=== PATIENT | female | born 1930 | race Caucasian/White ===

== ENCOUNTER 2016-11-18 14:11 | Inpatient (IN) ==
--- NOTE | 2016-11-18 14:42 | Emergency Department Note ---
Disposition Clinical Impression: Elevated troponin Altered mental status Qualifiers: Altered mental status type: unspecified Qualified Code(s): R41.82 - Altered mental status, unspecified Closed right hip fracture Qualifiers: Encounter type: initial encounter Qualified Code(s): S72.001A - Fracture of unspecified part of neck of right femur, initial encounter for closed fracture Disposition: Admitted As Inpatient Condition: Good Referrals: [facility] [Advanced Practice Nurse] - Forms: ED Satisfaction Letter General Adult HPI - General Chief complaint: ED Fall Stated complaint: Fall, issue walking Time Seen by Provider: 11/18/16 14:21 Source: patient, family, EMS Mode of arrival: EMS Limitations: altered mental status Nursing Notes Reviewed: Yes Vital Signs Reviewed: Yes - History of Present Illness HPI Narrative: 86-year-old female no reported medical history who presents to the ER with family via EMS due to fall. Daughter states that she found her laying on the ground this morning inside her home. States that she was last seen last night but the doors open this morning so she must up enough this morning. The patient is unable to provide any history and does not remember the fall. Family states that she is stubborn and does not take any medications. Reports that she has seemed more confused lately and she has been hoarding things at home. States that she has been more confused in terms of what things are. States that she found her with baby she was out today and asking where the baby was. No recent illnesses. Patient denies any complaints at this time with the exception of her feet hurting around her toenails. No other complaints. Pt Subjective Complaint: Fall Onset (ago): unknown Radiation: non-radiation Pain Scale: 0 Improves with: nothing Worsens with: nothing Associated symptoms: Reports: denies other symptoms Treatments Prior to Arrival: none - Related Data Home Medications Medication Instructions Recorded Confirmed No Known Home Drugs 11/18/16 11/18/16 Allergies Allergy/AdvReac Type Severity Reaction Status Date / Time No Known Allergies Allergy Verified 11/19/15 19:34 All systems ED: reviewed and negative except as stated. Constitutional: Denies: fever Cardiovascular: Denies: chest pain Respiratory: Denies: dyspnea Gastrointestinal: Denies: abdominal pain, nausea, vomiting Musculoskeletal: Denies: back pain, neck pain Neurological: Denies: headache, numbness, paresthesias Past Medical History - Past Medical History Attestation: Yes The following information was validated with the patient. 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 Absent: tenderness - Chest Chest inspection: Present: normal inspection, symmetric chest wall rise. Absent : tenderness - Respiratory Respiratory exam: Present: normal lung sounds bilaterally - Cardiovascular Cardiovascular exam: Present: regular rate, normal rhythm, normal heart sounds - Abdominal Exam Abdominal exam: Present: soft, Non-Tender. Absent: tenderness, distention, rigidity - Extremities Exam Extremities exam: Present: normal inspection, full ROM - Expanded Upper Extremity Exam Shoulder exam: Present: normal inspection, full ROM Arm exam: Present: normal inspection, full ROM Elbow exam: Present: normal inspection, full ROM Forearm/Wrist exam: Present: normal inspection, full ROM Hand exam: Present: normal inspection, full ROM Vascular exam: Normal: radial pulse - Expanded Lower Extremity Exam Hip/Pelvis exam: Present: normal inspection, full ROM Upper leg exam: Present: normal inspection. Absent: full ROM, swelling Knee exam: Present: normal inspection, full ROM Lower leg exam: Present: normal inspection, full ROM Ankle exam: Present: normal inspection, full ROM Foot/toe exam: Present: normal inspection, full ROM Neurovascular/Tendon exam: Absent: motor deficit, sensory deficit - Neurological Exam Neurological exam: Present: alert, other (Patient is alert and oriented 1 to self. Nonfocal neurologic exam. Moves all extremities equally. Sensation intact in the upper and lower extremities to light touch.). Absent: oriented X3 - Expanded Neurological Exam Patient oriented to: Present: person Speech: Present: fluid speech Motor strength - LUE: 5/5 Motor strength - RUE: 5/5 Motor strength - LLE: 5/5 Motor strength - RLE: 5/5 Sensory exam upper extremity: light touch: Normal Sensory exam lower extremity: light touch: Normal Coma Scale Eye Opening: Spontaneous Coma Scale Motor Response: Obeys Commands Coma Scale Verbal Response: Confused Coma Scale Total: 14 - Psychiatric Psychiatric exam: Present: normal affect, normal mood - Skin Skin exam: Present: warm, dry, intact, normal color Course Course Narrative: Patient seen and examined. She is alert and oriented 1 here. She has no complaints at this time with the exception of her toenails. We will obtain a CT scan of the head. We will also obtain an EKG and troponin given her fall of unknown etiology. We will also obtain an ammonia, TSH, urinalysis and CK level for the patient being found down with an unknown down time. She will likely require admission for altered mental status. - Reevaluation(s) Reevaluation #1: Pelvis x-ray appears abnormal on AP view. She voices no pain at this time. We will obtain a CT scan of the right hip as well. - Consultations Consultation #1: I discussed this case with the on-call orthopedic surgeon's nurse. Discussed the patient's history, exam and imaging findings. She will be admitted to the hospital service and orthopedic surgery will consult. Vital Signs Temperature 97.5 F L 11/18/16 14:13 Pulse Rate 89 11/18/16 14:13 Respiratory Rate 16 11/18/16 14:13 Blood Pressure 145/54 11/18/16 14:13 O2 Sat by Pulse Oximetry 97 11/18/16 14:13 Temperature 97.5 F L 11/18/16 14:13 Pulse Rate 79 11/18/16 17:44 Respiratory Rate 16 11/18/16 17:44 Blood Pressure 163/67 11/18/16 17:44 O2 Sat by Pulse Oximetry 97 11/18/16 17:44 Oxygen Delivery Oxygen Delivery Room Air Medical Decision Making - MDM Narrative Medical decision making narrative: 86-year-old female presents to the ER due to altered mental status and fall at home. Fall was unwitnessed. Patient is alert and oriented 1. She has also had a limp at home. CT of her head shows no acute abnormalities. CT of the right hip demonstrates an age indeterminate fracture. She has a slightly elevated troponin of 0.05 here. Patient admitted to the hospitalist service with orthopedic consultation. - Lab Data Lab results reviewed: Yes I reviewed the patient's lab results. Result diagrams: 11/18/16 14:52 11/18/16 14:52 Lab Results 11/18/16 11/18/16 11/18/16 Range/Units 14:52 14:52 14:52 WBC 7.2 (4.3-11.1) K/mcL RBC 4.40 (3.82-4.97) M/mcL Hgb 11.8 (11.5-15.4) g/dL Hct 38.2 (35.3-44.9) % MCV 86.8 (83.0-100.0) fL MCH 26.8 L (28.0-33.3) pg MCHC 30.9 L (31.6-35.5) g/dL RDW 13.8 (11.5-14.5) % Plt Count 168 (140-400) K/mcL MPV 10.3 (9.4-12.4) fL Immature Gran % 0.3 (0-4) % Seg Neutrophils % 85.3 % Lymphocytes % 8.8 % Monocytes % 5.2 % Eosinophils % 0.1 % Basophils % 0.3 % Neutrophils # 6.1 (1.6-8.9) K/mcL Lymphocytes # 0.6 (0.6-4.6) K/mcL Monocytes # 0.4 (0.0-1.3) K/mcL Eosinophils # 0.0 (0.0-0.6) K/mcL Basophils # 0.0 (0.0-0.2) K/mcL Sodium 143 (136-145) mEq/L Potassium 3.9 (3.5-4.5) mEq/L Chloride 106 (98-109) mEq/L Carbon Dioxide 24 (19-29) mEq/L BUN 32 H (7-20) mg/dL Creatinine 0.85 (0.57-1.11) mg/dL Est GFR ( Amer) > 60 (> 60) Est GFR (Non-Af Amer) > 60 (> 60) BUN/Creatinine Ratio 38 H (6-26) Glucose 108 H (70-99) mg/dL Calculated Osmolality 303 H (280-300) Calcium 9.3 (8.6-10.8) mg/dL Total Bilirubin 0.8 (0.2-1.2) mg/dL Direct Bilirubin 0.3 (0.0-0.5) mg/dL Indirect Bilirubin 0.5 (0.0-1.2) mg/dL AST 44 H (5-34) Units/L ALT 18 (0-55) Units/L Alkaline Phosphatase 66 (38-126) Units/L Ammonia (18-72) mcmol/L Creatine Kinase 1078 H (29-168) Units/L Troponin I 0.05 H* (0-0.03) ng/mL Serum Total Protein 6.7 (6.0-8.3) g/dL Albumin 3.5 (3.5-5.0) g/dL Globulin 3.2 (2.4-3.5) g/dL Albumin/Globulin Ratio 1.1 (1.1-2.2) TSH 1.363 (0.350-4.840) mcIU/mL 11/18/16 Range/Units 14:55 WBC (4.3-11.1) K/mcL RBC (3.82-4.97) M/mcL Hgb (11.5-15.4) g/dL Hct (35.3-44.9) % MCV (83.0-100.0) fL MCH (28.0-33.3) pg MCHC (31.6-35.5) g/dL RDW (11.5-14.5) % Plt Count (140-400) K/mcL MPV (9.4-12.4) fL Immature Gran % (0-4) % Seg Neutrophils % % Lymphocytes % % Monocytes % % Eosinophils % % Basophils % % Neutrophils # (1.6-8.9) K/mcL Lymphocytes # (0.6-4.6) K/mcL Monocytes # (0.0-1.3) K/mcL Eosinophils # (0.0-0.6) K/mcL Basophils # (0.0-0.2) K/mcL Sodium (136-145) mEq/L Potassium (3.5-4.5) mEq/L Chloride (98-109) mEq/L Carbon Dioxide (19-29) mEq/L BUN (7-20) mg/dL Creatinine (0.57-1.11) mg/dL Est GFR ( Amer) (> 60) Est GFR (Non-Af Amer) (> 60) BUN/Creatinine Ratio (6-26) Glucose (70-99) mg/dL Calculated Osmolality (280-300) Calcium (8.6-10.8) mg/dL Total Bilirubin (0.2-1.2) mg/dL Direct Bilirubin (0.0-0.5) mg/dL Indirect Bilirubin (0.0-1.2) mg/dL AST (5-34) Units/L ALT (0-55) Units/L Alkaline Phosphatase (38-126) Units/L Ammonia 19 (18-72) mcmol/L Creatine Kinase (29-168) Units/L Troponin I (0-0.03) ng/mL Serum Total Protein (6.0-8.3) g/dL Albumin (3.5-5.0) g/dL Globulin (2.4-3.5) g/dL Albumin/Globulin Ratio (1.1-2.2) TSH (0.350-4.840) mcIU/mL - Radiology Data Radiology results reviewed: Yes I reviewed the patient's radiology results. Chest X-Ray 11/18/16 14:37 IMPRESSION: No acute cardiopulmonary process demonstrated D/ / Dax Monroe MD / Dax Monroe MD Interpreting Provider: Dax Monroe MD Head CT 11/18/16 14:37 IMPRESSION: 1. No acute intracranial abnormality. 2. Diffuse cerebral atrophy. D/ / Kendrick Garnica MD / Kendrick Garnica MD Interpreting Provider: Kendrick Garnica MD Pelvis X-Ray 11/18/16 14:37 IMPRESSION: Impacted subcapital femoral neck fracture of indeterminate age. Although acute fracture is not excluded, sclerosis suggests a subacute or remote fracture. Otherwise no acute osseous abnormality of the pelvis. D/ / Lukas Alba MD / Lukas Alba MD Interpreting Provider: Lukas Alba MD Hip CT 11/18/16 15:14 IMPRESSION: 1. Age-indeterminate impacted fracture of the right subcapital femoral neck. 2. 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 3. Moderate right hip degenerative changes. Associated joint effusion and intra-articular bodies. D/ / 11/18/2016 16:24:24 Oliverio Kuo MD / lgray Interpreting Provider: Oliverio Kuo MD - EKG Data EKG #1 EKG attestation: Yes I reviewed and interpreted this EKG. EKG results narrative: EKG demonstrates sinus rhythm with PACs with a rate of 89 bpm. Normal axis. Normal intervals. No gross ST elevations or depressions. No acute ischemic findings. S.[email or web address].Christopher - Arjun Situation: Demographics, MOA Background: Presenting Complaint, Relevant PMH, Meds, & Allergies Assessment: Vital Signs, Course and respsone to treatment, Exam Concerns, Patient/Family Expectation, Pertinant Lab Results, Outstanding Labs Recommendation: Barrier(s) to disposition, Recommendation based on pending studies, treatments, or consults S.B.AIam Report Given to: Lucy Díaz Repor Time: 18:47
[2016-11-18 15:06] LABS: Basophils % 0.3 %; Eosinophils % 0.1 %; Hematocrit 38.2 % (35.3-44.9); Hemoglobin 11.8 g/dL (11.5-15.4); Immature Granulocytes % 0.3 % (0-4); Lymphocytes # 0.6 K/mcL (0.6-4.6); Lymphocytes % 8.8 %; Mean Corpuscular HGB Conc 30.9 g/dL (31.6-35.5); Mean Corpuscular Hemoglobin 26.8 pg (28.0-33.3); Mean Corpuscular Volume 86.8 fL (83.0-100.0); Mean Platelet Volume 10.3 fL (9.4-12.4); Monocytes # 0.4 K/mcL (0.0-1.3); Monocytes % 5.2 %; Neutrophils # 6.1 K/mcL (1.6-8.9); Platelet Count 168 K/mcL (140-400); Red Cell Distribution Width 13.8 % (11.5-14.5); Segmented Neutrophils % 85.3 %
[2016-11-18 16:14] LABS: Alanine Aminotransferase 18 Units/L (0-55); Albumin 3.5 g/dL (3.5-5.0); Albumin/Globulin Ratio 1.1 (1.1-2.2); Alkaline Phosphatase 66 Units/L (38-126); Aspartate Amino Transferase 44 Units/L (5-34); BUN/Creatinine Ratio 38 (6-26); Bilirubin,Direct 0.3 mg/dL (0.0-0.5); Bilirubin,Indirect 0.5 mg/dL (0.0-1.2); Bilirubin,Total 0.8 mg/dL (0.2-1.2); Blood Urea Nitrogen 32 mg/dL (7-20); Calcium 9.3 mg/dL (8.6-10.8); Carbon Dioxide 24 mEq/L (19-29); Chloride 106 mEq/L (98-109); Creatine Kinase 1078 Units/L (29-168); Globulin 3.2 g/dL (2.4-3.5); Glucose 108 mg/dL (70-99); Osmolality,Calculated 303 (280-300); Potassium 3.9 mEq/L (3.5-4.5); Sodium 143 mEq/L (136-145); Total Protein 6.7 g/dL (6.0-8.3); eGFR For African Americans > 60 (> 60); eGFR For Non-African Americans > 60 (> 60)
--- NOTE | 2016-11-18 16:22 | Emergency Department Note ---
START Narrative - START START: I examined this patient and my medical decision-making was reviewed with the Resident Physician. I agree with the documented findings, disposition and treatment plan as described except to the extent set forth below. 86yo F found down at home by family members today. pt found to have right hip fx today. ?subacute vs acute? family states she has had a hard time ambulating as of late due to right hip pain. pt will need to be admitted.
[2016-11-18 16:38] LABS: Thyroid Stimulating Hormone 1.363 mcIU/mL (0.350-4.840)
[2016-11-18] MEDS ORDERED: 0.9 % Sodium Chloride 1,000 ML IVC ONE (17:13)
[2016-11-18] MEDS ORDERED: Aspirin 81 MG TAB.CHEW PO ONE (17:27)
[2016-11-18] MEDS ORDERED: CefTRIAXone 1,000 MG VIAL IM ONE (18:05)
[2016-11-18] MEDS ORDERED: Haloperidol Lactate 5 MG/ML VIAL IM ONE (18:32)
--- NOTE | 2016-11-18 20:02 | Orthopedic Consult Note ---
Date of Encounter: 11/18/16 Time of Encounter: 19:54 History of Present Illness Chief complaint: No current complaints of pain HPI: Ms. Boyce is a 86 year old female admitted to the emergency room at [facility] after reportedly having a fall at her home today. The fall was not witnessed. The patient was brought to the emergency room at [facility]. where pelvic x-rays revealed evidence of a right hip fracture. A CT scan was also performed which was consistent with a previous fracture. Patient denies any complaints of pain. Patient does have significant for confusion and dementia. She does live alone. I did obtain a large amount of the patient's information from her son who is at bedside. For complete history and physical data please refer the formal portion of the medical chart. Pertinent orthopedic examination at this time reveals full range of motion of the hips without evidence of pain elicited. Leg lengths are relatively equal with perhaps some mild right lower extremity shortening. Neurosensory exam is normal. Are reviewed x-rays. These reveal some chronic changes about the right hip with a deformity of the head neck junction. There appear to be some cystic changes within the head. A CT scan was likewise reviewed. This reveals evidence of a healed impacted femoral neck fracture. There are secondary changes of avascular necrosis with margins of sclerosis. This is associated with some cystic changes in the anterior superior acetabulum. There are some irregularities along the greater trochanter. No significant surrounding edema. No gross lipohemarthrosis. Impression: Chronic, healed right femoral neck fracture with secondary avascular necrosis changes Recommendation: I had a long discussion with the patient's son and reviewed all the images with him explaining the process and the chronicity of this fracture with subsequent healing with secondary avascular necrosis changes. If the patient was symptomatic surgery could be entertained, this would either be a hemiarthroplasty or more definitively a total hip arthroplasty. I would not recommend either unless the patient was more symptomatic. Concerns for the patient's status would make either surgery risky from a postoperative compliance point of view. The patient's son understands and agrees. I also discussed with the son that the patient did have an elevated cardiac troponin level. This would need more workup. This would also potentially preclude any more urgent surgical intervention. Thank you very much for allowing me to see care for Mrs. Boyce. 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 Physical Exam - Constitutional Vitals: Temp Pulse Resp BP Pulse Ox 97.5 F L 79 14 160/81 97 11/18/16 14:13 11/18/16 17:44 11/18/16 19:09 11/18/16 19:09 11/18/16 17:44 Results - Labs Result Diagrams: 11/18/16 14:52 11/18/16 14:52 Labs: Abnormal lab results MCH 26.8 pg (28.0-33.3) L 11/18/16 14:52 MCHC 30.9 g/dL (31.6-35.5) L 11/18/16 14:52 BUN 32 mg/dL (7-20) H 11/18/16 14:52 BUN/Creatinine Ratio 38 (6-26) H 11/18/16 14:52 Glucose 108 mg/dL (70-99) H 11/18/16 14:52 Calculated Osmolality 303 (280-300) H 11/18/16 14:52 AST 44 Units/L (5-34) H 11/18/16 14:52 Creatine Kinase 1078 Units/L (29-168) H 11/18/16 14:52 Troponin I 0.05 ng/mL (0-0.03) H* 11/18/16 14:52 All other labs normal. - Diagnostic results Hip AP/Lateral x-ray: image reviewed Hip CT: image reviewed Consult Discharge Plan - Plan Referrals: NONE,PCP [Primary Care Provider] -
[2016-11-18] MEDS ORDERED: Ondansetron 4 MG/2 ML VIAL IVP PRN (21:23)
[2016-11-18] MEDS ORDERED: Naloxone 0.4 MG/ML INJ IVP PRN (21:23)
[2016-11-18] MEDS ORDERED: *HR* Morphine 2 MG/ML SYRINGE IVP PRN (21:23)
[2016-11-18] MEDS ORDERED: Acetaminophen 325 MG TABLET PO PRN (21:23)
--- NOTE | 2016-11-18 21:23 | Internal Med History&Physical ---
<Mark Herrera - Last Filed: 11/18/16 22:42> Date of Encounter: 11/18/16 Time of Encounter: 21:00 Assessment and Plan (1) Altered mental status Current visit: Yes Status: Acute Patient found this afternoon to have altered mental status, according to son this has been worsening over the past couple months but appears acutely worse today. Currently patient altered mental status of unknown etiology. Found down earlier this afternoon with dehydration and rhabdomyolysis. Prior right hip fracture. Abdominal pain and left lower extremity swelling on physical exam. Altered mental status could represent sequela of dehydration, rhabdo, DVT /PE, ACS or acute abdominal process. UA with reflex culture ordered Ultrasound of right upper quadrant including gallbladder, pancreas, liver Lower extremity Dopplers ordered We will continue to trend troponins Obtain echocardiogram We will continue 100 mL/hr normal saline We will monitor vitals, continuous telemetry, pulse oximetry Lipase ordered Qualifiers: Altered mental status type: unspecified Qualified Code(s): R41.82 - Altered mental status, unspecified (2) Rhabdomyolysis Current visit: Yes Status: Acute Patient found to have elevated of 1078 after having been down for unknown period of time. Evidence of dehydration and physical exam and labs. Kidney function appears intact. 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 Patient evaluated by orthopedic surgery with no intervention planned for this time. We will control pain with Tylenol, Pierron, a morphine depending on severity PT/OT consult banking services advisor consult to help with discharge planning and resources Qualifiers: Encounter type: initial encounter Qualified Code(s): S72.001A - Fracture of unspecified part of neck of right femur, initial encounter for closed fracture (4) Abdominal tenderness Current visit: Yes Status: Acute Patient presents with altered mental status, found down, with rhabdomyolysis, unilateral leg swelling present, exquisite tenderness in upper right quadrant with positive Figueroa sign, and tenderness and suprapubic regions. Patient has remote history (50 years ago) of lung cancer for which she had lobectomy according to son. We will obtain right upper quadrant ultrasound including liver, gallbladder, and pancreas Consider CT abdomen Obtain lipase UA with reflex culture ordered Qualifiers: Abdominal location: periumbilical Presence of rebound: not specified Qualified Code(s): R10.815 - Periumbilic abdominal tenderness (5) Left leg swelling Current visit: Yes Status: Acute Patient appears to have increased unilateral swelling in left leg, increased calf diameter, new lateral calf tenderness, and positive Homans sign. Clinical findings concerning for DVT. Wells score for DVT 3-4. We will obtain lower extremity Dopplers (6) Dehydration Current visit: Yes Status: Acute Patient presents with altered mental status, found down for an unknown period of time. Elevated CK seen. Patient BUN disproportionately elevated with BUN to creatinine ratio greater than 20 suggesting dehydration. Patient received 1 L fluid bolus in the ED. We will continue patient on normal saline at 100 mL an hour (7) Elevated troponin Current visit: Yes Status: Acute Patient presented with initial troponin of 0.05 in the presence of dehydration and rhabdomyolysis. No findings concerning for ischemia noted in patient EKG. Elevation of troponin likely represents demand ischemia, we will continue to trend. We will continue to trend troponins every 6 hours We will watch patient on telemetry Obtain echocardiogram (8) HTN (hypertension) Current visit: Yes Status: Acute Mild hypertension present currently 147/84. We will continue to monitor with regular vital checks Qualifiers: Qualified Code(s): I10 - Essential (primary) hypertension (9) DVT prophylaxis Current visit: No Status: Acute Physician place on 5000 units heparin subcutaneous twice a day Internal Medicine - H&P: HPI Chief complaint: AMS, broken right hip Admitted From: Home Plans for Post Hospital Care: Home History of present illness: Ms. Boyce is a 86 year old female with no significant prior medical history (as patient does not go to doctors) who was brought to [facility] by EMS after being found down at home. Get complete history is difficult due to alterations in patient mental status, patient's son is at bedside to assist in history or possible. He states that patient was found down by her neighbor earlier today with altered mental status. It is unclear how long she had been down prior to being found. Imaging performed in the emergency room showed the patient had a past right hip fracture as evidenced by healed impacted from oral neck fracture with secondary avascular necrosis. The son reports that he was unaware of patient and fracture as she does not typically complain of any discomfort, nor has he noticed her walking differently, with limp, or pain. Patient is alert spontaneously, but only oriented 2 does not appear to answer questions appropriately. Patient's son states that since her last hospitalization 5 months ago and he has been continuing to have sundowning. In the emergency department she was apparently quite disoriented and climbing out of her bed. Past Med Surg Social Fam HX - Past Medical History Medical history: cancer, dementia, other Psychiatric history: no psych history - Past Surgical History Surgical History: cholecystectomy, other - Social History Smoking Status: Never smoker Smokeless Tobacco Status: No Alcohol use: none Drug use: none - Family History Mother Living Status: Cause of : Natural causes Internal Medicine - H&P: Meds No Known Home Drugs 11/18/16 [History] 3 Allergy/AdvReac Type Severity Reaction Status Date / Time No Known Allergies Allergy Verified 11/19/15 19:34 ROS unobtainable: due to mental status - Constitutional Vitals: Temp Pulse Resp BP Pulse Ox 98.3 F 91 18 147/84 98 11/18/16 20:00 11/18/16 20:00 11/18/16 20:00 11/18/16 20:00 11/18/16 20:00 Exam: General: Cooperative, pleasant, no acute distress, alert and oriented 2, does not answer questions appropriately HEENT: Normocephalic, atraumatic, neck supple, trachea midline, Conjunctiva pink , sclera anicteric, EOMI, PERRL, oral mucosa dry, no orophargeal erythema or exudates Respiratory: No accessory muscle usage, clear to auscultation bilaterally, no wheezes/rhonchi/rales appreciated Cardiovascular: Regular rate and rhythm, S1 and S2 present, no murmurs/rubs/ gallops/clicks appreciated GI/abdominal: Nondistended, tenderness to palpation in suprapubic region, right upper quadrant, right lower quadrant, positive Figueroa sign, soft, normal bowel sounds, no peritoneal signs Extremities: Calf tenderness present in left calf, positive Homans sign left side, increased Diameter in left leg, noncyanotic, +1 pedal edema appreciated bilaterally, warm, lower extremity pulses palpable and symmetrical Neurological: Alert and oriented , no facial droop, no focal deficits, cranial nerves II through XII grossly intact, bench carpenter strength preserved bilaterally, equal 5/5 strength in bilateral upper shortness, gross sensation intact in upper and lower extremities Skin: Dry, intact, normal color Internal Med - H&P Results - Labs CBC & Chem 7: 11/18/16 14:52 11/18/16 14:52 <Melisa Gaston - Last Filed: 11/19/16 04:32> Date of Encounter: 11/19/16 Time of Encounter: 03:30 Internal Medicine - H&P: HPI History of present illness: Ms. Boyce is a 86 year old female All Systems PM: A 10-system review of systems was performed and is negative for pertinent findings except as documented above in the HPI. - Constitutional Vitals: Temp Pulse Resp BP Pulse Ox 98.5 F 65 14 161/71 100 11/18/16 23:38 11/18/16 23:38 11/18/16 23:38 11/18/16 23:38 11/18/16 23:38 Internal Med - H&P Results - Labs CBC & Chem 7: 11/18/16 14:52 11/18/16 14:52 Labs: Cardiac Enzymes 11/18/16 Range/Units 23:02 Troponin I 0.04 H* (0-0.03) ng/mL - Attending Attestation I have independently seen and examined the patient. I agree with the documented findings, assessment, and plan as recorded by the resident physician Mark Herrera except as listed below: As per prior records, patient has history of Alzheimers dementia however has not been on any medications at home. It is unclear of what patient's baseline mental status is at this time. Given the acute presentation of rhabdomyolysis, will continue IV fluids and closely monitor renal function. Will obtain Liver US given RUQ abd pain. Pt reported of resolution of pain after receiving morphine. Will continue to closely monitor. If mental status does not change despite improvement in metabolic insufficiencies, consider neurology evaluation for Alzheimer's dementia.
[2016-11-18] MEDS: 0.9 % Sodium Chloride 1,000 ML IVC SCH (22:30)
[2016-11-19 05:31] LABS: Basophils % 0.3 %; Eosinophils # 0.1 K/mcL (0.0-0.6); Eosinophils % 1.4 %; Hemoglobin 10.4 g/dL (11.5-15.4); Immature Granulocytes % 0.2 % (0-4); Lymphocytes # 0.8 K/mcL (0.6-4.6); Lymphocytes % 13.5 %; Mean Corpuscular HGB Conc 31.5 g/dL (31.6-35.5); Mean Corpuscular Hemoglobin 27.4 pg (28.0-33.3); Mean Corpuscular Volume 87.1 fL (83.0-100.0); Mean Platelet Volume 10.7 fL (9.4-12.4); Monocytes # 0.4 K/mcL (0.0-1.3); Monocytes % 6.9 %; Neutrophils # 4.9 K/mcL (1.6-8.9); Platelet Count 132 K/mcL (140-400); Red Blood Count 3.79 M/mcL (3.82-4.97); Red Cell Distribution Width 13.7 % (11.5-14.5); Segmented Neutrophils % 77.7 %
[2016-11-19 05:53] LABS: Chol/HDL Ratio 2.7 (0-4.9); Magnesium 1.8 mg/dL (1.6-2.6)
[2016-11-19 06:42] LABS: Bilirubin,Urine Negative (Negative); Blood,Urine Large (Negative); Clarity,Urine Cloudy (Clear); Color,Urine Yellow (Yellow); Glucose,Urine (UA) Normal (Normal); Ketones,Urine 40 mg/dL (Negative); Leukocyte Esterase,Urine Trace (Negative); Nitrite,Urine Negative (Negative); Protein,Urine 30 mg/dL (Neg-Trace); Specific Gravity,Urine 1.019 (1.010-1.025); Urobilinogen,Urine Normal (Normal)
[2016-11-19] MEDS: *HR* Heparin 5,000 UNIT/ML VIAL SQ SCH ×2 (06:46→19:44)
[2016-11-19] MEDS: Pantoprazole 40 MG VIAL IVP SCH (06:46)
[2016-11-19 06:51] LABS: Bacteria,Urine None Seen per hpf (None-Few); Hyaline Casts,Urine None Seen per lpf (None-Few); Squamous Epithelial Cell,Urine None Seen per lpf (None-Few); WBC,Urine 30-50 per hpf (0-3)
[2016-11-19 09:51] LABS: BUN/Creatinine Ratio 34 (6-26); Blood Urea Nitrogen 23 mg/dL (7-20); Carbon Dioxide 23 mEq/L (19-29); Chloride 110 mEq/L (98-109); Creatine Kinase 527 Units/L (29-168); Glucose 74 mg/dL (70-99); Osmolality,Calculated 296 (280-300); Potassium 3.3 mEq/L (3.5-4.5); Sodium 142 mEq/L (136-145); eGFR For African Americans > 60 (> 60); eGFR For Non-African Americans > 60 (> 60)
--- NOTE | 2016-11-19 13:16 | Internal Med Progress Note ---
Date of Encounter: 11/19/16 Time of Encounter: 13:14 - Assessment and plan (1) Elevated troponin Current Visit: Yes Status: Acute Assessment and plan: Patient likely has demand ischemia from dehydration and rhabdomyolysis. Serial troponins flattened adynamic, around 0.05. Continue telemetry monitoring and follow-up echocardiogram. (2) Abdominal tenderness Current Visit: Yes Status: Resolved Assessment and plan: Patient reported right upper quadrant abdominal pain to the admitting physician. She currently denies pain. Follow-up right upper quadrant ultrasound. Diet as tolerated. Qualifiers: Abdominal location: right upper quadrant Presence of rebound: not specified Qualified Code(s): R10.811 - Right upper quadrant abdominal tenderness (3) Left leg swelling Current Visit: Yes Status: Acute Assessment and plan: Noted to have warmth, edema and calf tenderness in left lower extremity. Follow -up venous Doppler. Left leg elevation. (4) Rhabdomyolysis Current Visit: Yes Status: Acute Assessment and plan: Due to lying in her couch for several hours at home. Serum creatinine kinases noted to be improving. Monitor serum creatinine and electrolytes closely and continue IV hydration. Qualifiers: Rhabdomyolysis type: non-traumatic Qualified Code(s): M62.82 - Rhabdomyolysis (5) Acute encephalopathy Current Visit: Yes Status: Acute Assessment and plan: Patient likely has delirium due to elderly age, UTI, hospitalization and dehydration. Continue supportive care and treatment of underlying conditions. Physical and occupational therapy evaluation. (6) Hypokalemia Current Visit: Yes Status: Acute Assessment and plan: Supplement with oral potassium chloride. (7) Closed right hip fracture Current Visit: Yes Status: Chronic Assessment and plan: Incidental finding of right hip fracture on CT pelvis, however this is noted to be old and patient does not report any pertaining symptoms. Has been evaluated by orthopedic surgery, who recommended conservative management at this time without symptoms. Physical and occupational therapy evaluation pending. Qualifiers: Encounter type: initial encounter Qualified Code(s): S72.001A - Fracture of unspecified part of neck of right femur, initial encounter for closed fracture (8) Essential hypertension Current Visit: Yes Status: Chronic Assessment and plan: Patient likely has undiagnosed hypertension, she does not take any medications at home. Continue to monitor for now. - Subjective Interval history: Unable to provide history, noted to be confused, d/w patient's son at bedside; patient has been healthy and ambulatory until yesterday, lives alone; no reported fever/chills, cough, dyspnea; reported right upper abdominal pain last night, no nausea/emesis/diarrhea; - Constitutional Vitals: Temp Pulse Resp BP Pulse Ox 98.7 F 85 16 169/53 99 11/19/16 11:44 11/19/16 11:44 11/19/16 11:44 11/19/16 11:44 11/19/16 11:44 General appearance: Present: A&O X 1. Absent: answers questions appropriately - Respiratory Respiratory exam: Present: CTAB. Absent: accessory muscle use, rales, rhonchi, wheezes - Cardiovascular Cardiovascular exam: Present: RRR, +S1, +S2. Absent: diastolic murmur, gallop, rubs, systolic murmur - GI/Abdominal GI/Abdominal exam: Present: normal bowel sounds, soft, no peritoneal signs. Absent: distended, tenderness - Extremities Exam Extremities exam: Present: pedal edema (left leg with warmth, tenderness, edema) , tenderness, warm, radial pulses palpable and symmetrical. Absent: calf tenderness, cyanotic Internal Medicine: Result - Labs CBC & Chem 7: 11/20/16 06:46 11/21/16 04:52 Labs: Short CBC 11/19/16 Range/Units 05:19 WBC 6.2 (4.3-11.1) K/mcL Hgb 10.4 L (11.5-15.4) g/dL Hct 33.0 L (35.3-44.9) % Plt Count 132 L (140-400) K/mcL Neutrophils # 4.9 (1.6-8.9) K/mcL BMP 11/19/16 08:57 Sodium 142 Potassium 3.3 L Chloride 110 H Carbon Dioxide 23 BUN 23 H Creatinine 0.68 Glucose 74 Calcium 8.0 L Cardiac Enzymes 11/18/16 11/19/16 Range/Units 23:02 05:19 Troponin I 0.04 H* 0.05 H* (0-0.03) ng/mL Urine 11/19/16 Range/Units 06:27 Urine Color Yellow (Yellow) Urine Clarity Cloudy A (Clear) Urine pH 6.0 (5.0-8.0) pH Units Ur Specific [place] 1.019 (1.010-1.025) Urine Protein 30 H (Neg-Trace) mg/dL Urine Glucose (UA) Normal (Normal) mg/dL Consult Discharge Plan - Plan Referrals: NONE,PCP [Primary Care Provider] -
[2016-11-19] MEDS: *HR* HYDROcodone/Acet 5/325 mg TABLET PO PRN (21:45)
[2016-11-19] MEDS: Potassium Chloride Elixir 20 MEQ/15 ML UDC PO ONE ×2 (22:00→22:07)
[2016-11-19] MEDS ORDERED: Ketorolac 15 MG/ML VIAL IVP PRN (22:09)
[2016-11-19] MEDS ORDERED: *HR* Morphine 2 MG/ML SYRINGE IVP ONE (23:47)
[2016-11-20] MEDS: 0.9 % Sodium Chloride 1,000 ML IVC SCH ×2 (05:54→16:13)
[2016-11-20] MEDS: Pantoprazole 40 MG VIAL IVP SCH (05:54)
[2016-11-20] MEDS: *HR* Heparin 5,000 UNIT/ML VIAL SQ SCH ×2 (05:54→17:24)
[2016-11-20 06:55] LABS: Basophils % 0.6 %; Eosinophils # 0.1 K/mcL (0.0-0.6); Eosinophils % 1.4 %; Hematocrit 34.6 % (35.3-44.9); Hemoglobin 10.8 g/dL (11.5-15.4); Immature Granulocytes % 0.6 % (0-4); Immature Platelets 3.3 % (1.1-6.1); Lymphocytes # 0.6 K/mcL (0.6-4.6); Mean Corpuscular HGB Conc 31.2 g/dL (31.6-35.5); Mean Corpuscular Hemoglobin 27.2 pg (28.0-33.3); Mean Corpuscular Volume 87.2 fL (83.0-100.0); Mean Platelet Volume 10.5 fL (9.4-12.4); Monocytes # 0.3 K/mcL (0.0-1.3); Platelet Count 135 K/mcL (140-400); Red Blood Count 3.97 M/mcL (3.82-4.97); Red Cell Distribution Width 13.5 % (11.5-14.5); Segmented Neutrophils % 80.4 %
[2016-11-20 07:10] LABS: BUN/Creatinine Ratio 31 (6-26); Blood Urea Nitrogen 21 mg/dL (7-20); Carbon Dioxide 19 mEq/L (19-29); Chloride 110 mEq/L (98-109); Creatine Kinase 236 Units/L (29-168); Glucose 68 mg/dL (70-99); Osmolality,Calculated 293 (280-300); Potassium 3.1 mEq/L (3.5-4.5); Sodium 141 mEq/L (136-145); eGFR For African Americans > 60 (> 60); eGFR For Non-African Americans > 60 (> 60)
--- NOTE | 2016-11-20 11:01 | Internal Med Progress Note ---
Date of Encounter: 11/20/16 Time of Encounter: 11:00 - Assessment and plan (1) Acute encephalopathy Current Visit: Yes Status: Acute Assessment and plan: Patient likely has delirium due to elderly age, hospitalization and dehydration. Continue supportive care and treatment of underlying conditions. Urinalysis is suggestive of infection, however urine culture shows no growth. We will hold antibiotics at this time. Patient continues to be agitated and trying to get out of bed. Will use when necessary IV Haldol and start oral Risperdal. One-on-one sitter for patient safety. Physical and occupational therapy evaluation noted, recommend placement in extended care facility. hospitality services manager consult. (2) Hypokalemia Current Visit: Yes Status: Acute Assessment and plan: Supplement with oral potassium chloride. (3) Closed right hip fracture Current Visit: Yes Status: Chronic Assessment and plan: Incidental finding of right hip fracture on CT pelvis, however this is noted to be old and patient does not report any pertaining symptoms. Has been evaluated by orthopedic surgery, who recommended conservative management at this time without symptoms. Physical and occupational therapy daily. Qualifiers: Encounter type: initial encounter Qualified Code(s): S72.001A - Fracture of unspecified part of neck of right femur, initial encounter for closed fracture (4) Elevated troponin Current Visit: Yes Status: Resolved Assessment and plan: Patient likely has demand ischemia from dehydration and rhabdomyolysis. Serial troponins flattened adynamic, around 0.05. Continue telemetry monitoring; echocardiogram shows hyperdynamic ejection fraction 70%, mild left ventricular diastolic dysfunction, mild to moderate left atrial dilatation. (5) Abdominal tenderness Current Visit: Yes Status: Resolved Assessment and plan: Patient reported right upper quadrant abdominal pain to the admitting physician. She currently denies pain. Right upper quadrant ultrasound reviewed , no acute abnormality, mild hepatic steatosis. Diet as tolerated. Qualifiers: Abdominal location: right upper quadrant Presence of rebound: not specified Qualified Code(s): R10.811 - Right upper quadrant abdominal tenderness (6) Left leg swelling Current Visit: Yes Status: Acute Assessment and plan: Noted to have warmth, edema and calf tenderness in left lower extremity. Left lower extremity venous Doppler ultrasound is negative for DVT. Left leg elevation. (7) Rhabdomyolysis Current Visit: Yes Status: Acute Assessment and plan: Due to lying in her couch for several hours at home. Serum creatinine kinases noted to be improving. Monitor serum creatinine and electrolytes closely and continue IV hydration. Qualifiers: Rhabdomyolysis type: non-traumatic Qualified Code(s): M62.82 - Rhabdomyolysis - Subjective Interval history: Unable to provide history, patient is very confused today; able to tell me her name but otherwise disoriented to place and time. Trying to get out of bed, thinking that she needs to go to her bed and lie down. Attempted to reorient to surroundings. - Constitutional Vitals: Temp Pulse Resp BP Pulse Ox 98.7 F 91 16 163/57 97 11/20/16 07:11 11/20/16 07:11 11/20/16 07:11 11/20/16 07:11 11/20/16 07:11 General appearance: Present: A&O X 1. Absent: answers questions appropriately - Respiratory Respiratory exam: Present: CTAB. Absent: accessory muscle use, rales, rhonchi, wheezes - Cardiovascular Cardiovascular exam: Present: RRR, +S1, +S2, tachycardia. Absent: diastolic murmur, gallop, rubs, systolic murmur - GI/Abdominal GI/Abdominal exam: Present: normal bowel sounds, soft, no peritoneal signs. Absent: distended, tenderness Internal Medicine: Result - Labs CBC & Chem 7: 11/20/16 06:46 11/21/16 04:52 Labs: Short CBC 11/20/16 Range/Units 06:46 WBC 5.0 (4.3-11.1) K/mcL Hgb 10.8 L (11.5-15.4) g/dL Hct 34.6 L (35.3-44.9) % Plt Count 135 L (140-400) K/mcL Neutrophils # 4.0 (1.6-8.9) K/mcL BMP 11/20/16 06:46 Sodium 141 Potassium 3.1 L Chloride 110 H Carbon Dioxide 19 BUN 21 H Creatinine 0.67 Glucose 68 L Calcium 8.0 L - Impressions Impressions Echocardiogram 11/19/16 19:00 Impressions: LVEF 70%. Normal LV chamber size, wall thickness and function. Mild left ventricular diastolic dysfunction. Normal right ventricular structure and function. Mild to moderately dilated left atrium. Unable to estimate RVSP due to lack of TR jet. No obvious significant valvular dysfunction. Left Ventricular Wall Motion: Rest Echo Findings All wall segments showed normal motion. Findings: Study Quality * Technically adequate exam. ECG Findings * Normal sinus rhythm. Left Ventricle * LVEF 70%. * Normal LV chamber size, wall thickness and function. * Mild left ventricular diastolic dysfunction. Right Ventricle * Normal right ventricular structure and function. Left Atrium * Mild to moderately dilated left atrium. Right Atrium * Normal right atrial size. Interatrial Septum * No evidence of PFO by color Doppler. Aortic Valve * Aortic valve not well visualized. * No aortic regurgitation. * No aortic stenosis. Mitral Valve * Normal mitral valve structure and function. * No mitral stenosis. * No mitral regurgitation. Tricuspid Valve * Normal tricuspid valve structure and function. * No tricuspid regurgitation. * Unable to estimate RVSP due to lack of TR jet. Pulmonic Valve * Pulmonic valve is not well visualized. * No pulmonic regurgitation. Aorta * Normally sized aortic root. Pericardium * The pericardium appears normal. IVC * Normal IVC dimensions and inspiratory collapse. Pulmonary Artery * Normal visualized portions of the main pulmonary artery. Consult Discharge Plan - Plan Referrals: NONE,PCP [Primary Care Provider] -
[2016-11-20] MEDS ORDERED: Potassium Chloride Elixir 20 MEQ/15 ML UDC PO ONE (12:59)
[2016-11-20] MEDS: Haloperidol Lactate 5 MG/ML VIAL IVP PRN ×2 (13:00→17:22)
[2016-11-20] MEDS: *HR* HYDROcodone/Acet 5/325 mg TABLET PO PRN (16:16)
[2016-11-20] MEDS ORDERED: Haloperidol Lactate 5 MG/ML VIAL IVP PRN (18:35)
[2016-11-20] MEDS ORDERED: Ziprasidone injection 20 MG/ML VIAL IM ONE (19:50)
[2016-11-21] MEDS: 0.9 % Sodium Chloride 1,000 ML IVC SCH (01:05)
[2016-11-21 05:50] LABS: BUN/Creatinine Ratio 15 (6-26); Blood Urea Nitrogen 11 mg/dL (7-20); Calcium 8.1 mg/dL (8.6-10.8); Carbon Dioxide 24 mEq/L (19-29); Chloride 115 mEq/L (98-109); Glucose 116 mg/dL (70-99); Magnesium 1.8 mg/dL (1.6-2.6); Osmolality,Calculated 302 (280-300); Potassium 3.6 mEq/L (3.5-4.5); Sodium 146 mEq/L (136-145); eGFR For African Americans > 60 (> 60); eGFR For Non-African Americans > 60 (> 60)
[2016-11-21] MEDS: *HR* Heparin 5,000 UNIT/ML VIAL SQ SCH ×2 (06:36→16:54)
--- NOTE | 2016-11-21 10:15 | Internal Med Progress Note ---
Date of Encounter: 11/21/16 Time of Encounter: 10:13 - Assessment and plan (1) Acute encephalopathy Current Visit: Yes Status: Acute Assessment and plan: Patient likely has delirium due to elderly age, underlying dementia, hospitalization and dehydration. No evidence of infection. Continues to have episodes of agitation, one-on-one sitter for patient safety. Will use when necessary IV Haldol and continue oral Risperdal. Physical and occupational therapy evaluation noted, recommend placement in extended care facility. client services account manager consult. (2) Essential hypertension Current Visit: Yes Status: Chronic Assessment and plan: Blood pressure noted to be elevated. Not on any medications at home. Start low -dose amlodipine and continue to monitor. Low-sodium diet. Will use when necessary IV hydralazine for appropriate blood pressure control. (3) Hypokalemia Current Visit: Yes Status: Resolved Assessment and plan: Improved with oral and IV potassium chloride supplements. (4) Closed right hip fracture Current Visit: Yes Status: Chronic Assessment and plan: Incidental finding of right hip fracture on CT pelvis, however this is noted to be old and patient does not report any pertaining symptoms. Has been evaluated by orthopedic surgery, who recommended conservative management at this time without symptoms. Physical and occupational therapy daily. Qualifiers: Encounter type: initial encounter Qualified Code(s): S72.001A - Fracture of unspecified part of neck of right femur, initial encounter for closed fracture (5) Elevated troponin Current Visit: Yes Status: Resolved (6) Abdominal tenderness Current Visit: Yes Status: Resolved Qualifiers: Abdominal location: right upper quadrant Presence of rebound: not specified Qualified Code(s): R10.811 - Right upper quadrant abdominal tenderness (7) Left leg swelling Current Visit: Yes Status: Acute Assessment and plan: Noted to have warmth, edema and calf tenderness in left lower extremity. Left lower extremity venous Doppler ultrasound is negative for DVT. Left leg elevation. (8) Rhabdomyolysis Current Visit: Yes Status: Resolved Assessment and plan: Due to lying in her couch for several hours at home. Serum creatinine kinases noted to be improving. No evidence of renal dysfunction. Discontinue IV fluids. Qualifiers: Rhabdomyolysis type: non-traumatic Qualified Code(s): M62.82 - Rhabdomyolysis (9) Hypernatremia Current Visit: Yes Status: Acute Assessment and plan: Patient is noted to have hypernatremia and hyperkalemia, likely related to IV hydration with normal saline. Discontinue IV fluids and continue to monitor. - Subjective Interval history: Unable to provide history, patient continues to be pleasantly confused; calmer today, not trying to climb out of bed; has 1:1 sitter for safety; - Constitutional Vitals: Temp Pulse Resp BP Pulse Ox 98.5 F 64 17 148/63 97 11/21/16 07:00 11/21/16 07:00 11/21/16 07:00 11/21/16 07:00 11/21/16 07:00 General appearance: Present: A&O X 1. Absent: answers questions appropriately - Respiratory Respiratory exam: Present: CTAB. Absent: accessory muscle use, rales, rhonchi, wheezes - Cardiovascular Cardiovascular exam: Present: RRR, +S1, +S2, tachycardia. Absent: diastolic murmur, gallop, rubs, systolic murmur Internal Medicine: Result - Labs CBC & Chem 7: 11/20/16 06:46 11/21/16 04:52 Labs: BMP 11/21/16 04:52 Sodium 146 H Potassium 3.6 Chloride 115 H Carbon Dioxide 24 BUN 11 D Creatinine 0.71 Glucose 116 H Calcium 8.1 L - Impressions Impressions Echocardiogram 11/19/16 19:00 Impressions: LVEF 70%. Normal LV chamber size, wall thickness and function. Mild left ventricular diastolic dysfunction. Normal right ventricular structure and function. Mild to moderately dilated left atrium. Unable to estimate RVSP due to lack of TR jet. No obvious significant valvular dysfunction. Left Ventricular Wall Motion: Rest Echo Findings All wall segments showed normal motion. Findings: Study Quality * Technically adequate exam. ECG Findings * Normal sinus rhythm. Left Ventricle * LVEF 70%. * Normal LV chamber size, wall thickness and function. * Mild left ventricular diastolic dysfunction. Right Ventricle * Normal right ventricular structure and function. Left Atrium * Mild to moderately dilated left atrium. Right Atrium * Normal right atrial size. Interatrial Septum * No evidence of PFO by color Doppler. Aortic Valve * Aortic valve not well visualized. * No aortic regurgitation. * No aortic stenosis. Mitral Valve * Normal mitral valve structure and function. * No mitral stenosis. * No mitral regurgitation. Tricuspid Valve * Normal tricuspid valve structure and function. * No tricuspid regurgitation. * Unable to estimate RVSP due to lack of TR jet. Pulmonic Valve * Pulmonic valve is not well visualized. * No pulmonic regurgitation. Aorta * Normally sized aortic root. Pericardium * The pericardium appears normal. IVC * Normal IVC dimensions and inspiratory collapse. Pulmonary Artery * Normal visualized portions of the main pulmonary artery. Consult Discharge Plan - Plan Referrals: NONE,PCP [Primary Care Provider] -
[2016-11-21] MEDS: amLODIPine 5 MG TABLET PO SCH ×2 (11:03→11:08)
[2016-11-21] MEDS: risperiDONE 0.25 MG TABLET PO SCH (16:53)
[2016-11-22] MEDS: *HR* Heparin 5,000 UNIT/ML VIAL SQ SCH ×2 (05:37→17:24)
[2016-11-22] MEDS: amLODIPine 5 MG TABLET PO SCH (07:25)
[2016-11-22] MEDS: risperiDONE 0.25 MG TABLET PO SCH (07:25)
--- NOTE | 2016-11-22 13:52 | Internal Med Progress Note ---
Date of Encounter: 11/22/16 Time of Encounter: 13:51 - Assessment and plan (1) Acute encephalopathy Current Visit: Yes Status: Acute Assessment and plan: Patient likely has delirium due to elderly age, underlying dementia, hospitalization and dehydration. No evidence of infection. Continues to have episodes of agitation as the day progresses, refuses meds and tried to get out of bed; had to restart one-on-one sitter for patient safety. Will use when necessary IV Haldol, Ativan and continue oral Risperdal. Physical and occupational therapy evaluation noted, recommend placement in extended care facility. social services consulted, patient has been accepted at [facility]. (2) Hypokalemia Current Visit: Yes Status: Resolved (3) Closed right hip fracture Current Visit: Yes Status: Chronic Assessment and plan: Incidental finding of right hip fracture on CT pelvis, however this is noted to be old and patient does not report any pertaining symptoms. Has been evaluated by orthopedic surgery, who recommended conservative management at this time without symptoms. Physical and occupational therapy daily. Qualifiers: Encounter type: initial encounter Qualified Code(s): S72.001A - Fracture of unspecified part of neck of right femur, initial encounter for closed fracture (4) Elevated troponin Current Visit: Yes Status: Resolved (5) Abdominal tenderness Current Visit: Yes Status: Resolved Qualifiers: Abdominal location: right upper quadrant Presence of rebound: not specified Qualified Code(s): R10.811 - Right upper quadrant abdominal tenderness (6) Left leg swelling Current Visit: Yes Status: Resolved (7) Rhabdomyolysis Current Visit: Yes Status: Resolved Qualifiers: Rhabdomyolysis type: non-traumatic Qualified Code(s): M62.82 - Rhabdomyolysis (8) Essential hypertension Current Visit: Yes Status: Chronic Assessment and plan: Continues to have somewhat elevated blood pressure and intermittent tachycardia , which gets worse with her agitation. Continue oral Norvasc and when necessary IV hydralazine and start oral metoprolol. (9) Hypernatremia Current Visit: Yes Status: Acute - Subjective Interval history: Continues to be confused and disoriented, cannot provide history; tolerates oral diet, BP better controlled today, took her morning oral meds today; however began to get more confused this morning and was trying to get out of bed and had to be placed on sitter; - Constitutional Vitals: Temp Pulse Resp BP Pulse Ox 98.8 F 109 16 168/63 99 11/22/16 11:46 11/22/16 11:46 11/22/16 11:46 11/22/16 11:46 11/22/16 11:46 General appearance: Present: A&O X 1. Absent: answers questions appropriately - Respiratory Respiratory exam: Present: CTAB. Absent: accessory muscle use, rales, rhonchi, wheezes - Cardiovascular Cardiovascular exam: Present: RRR, +S1, +S2, tachycardia. Absent: diastolic murmur, gallop, rubs, systolic murmur - GI/Abdominal GI/Abdominal exam: Present: normal bowel sounds, soft, no peritoneal signs. Absent: distended, tenderness Internal Medicine: Result - Labs CBC & Chem 7: 11/20/16 06:46 11/21/16 04:52 Consult Discharge Plan - Plan Referrals: NONE,PCP [Primary Care Provider] -
[2016-11-22] MEDS ORDERED: *HR* LORazepam 2 MG/ML VIAL IVP ONE (14:23)
[2016-11-23] MEDS: *HR* Heparin 5,000 UNIT/ML VIAL SQ SCH ×2 (06:36→17:39)
[2016-11-23] MEDS: risperiDONE 0.25 MG TABLET PO SCH (08:23)
[2016-11-23] MEDS: amLODIPine 5 MG TABLET PO SCH (08:23)
--- NOTE | 2016-11-23 08:23 | Venous Imaging Report ---
LE Venous Duplex Patient Name:Mendy Boyce Order Number:[id number] Procedure Date:11/19/2016 Date:2Age:86 yrs Gender:Female Location:[facility] Room #: 3NE19 Ice Carver:Zena Delacruz, RDCS, RVT Referring MD:Mark Herrera DO Reading MD:Emil Canales MD Primary Indications:Unilateral leg swelling Secondary Indications: Impressions: Bilateral lower extremity: normal superficial and deep exam. Recommendations: Preliminary given to pt RN. Findings Venous Duplex Results: Right: Venous imaging of the lower extremity reveals full patency and normal vessel compressibility of the right distal iliac, right common femoral, right superficial femoral, right popliteal, right posterior tibial, right peroneal, right great saphenous and right lesser saphenous. Doppler signals in the evaluated veins were normal. Left: Venous imaging of the lower extremity reveals full patency and normal vessel compressibility of the left distal iliac, left common femoral, left superficial femoral, left popliteal, left posterior tibial, left peroneal, left great saphenous and left lesser saphenous. Doppler signals in the evaluated veins were normal. Lower Extremity Venous Duplex Side Vein Compress Spontaneous Flow Augment Diameter (cm) Depth (cm) Right Distal Iliac Normal Yes Phasic Yes Right Common Femoral Normal Yes Phasic Yes Right Superficial Femoral Normal Yes Phasic Yes Right Popliteal Normal Yes Phasic Yes Right Posterior Tibial Normal Yes Phasic Yes Right Peroneal Normal Yes Phasic Yes Right Great Saphenous Normal Yes Phasic Yes Right Lesser Saphenous Normal Yes Phasic Yes Left Distal Iliac Normal Yes Phasic Yes Left Common Femoral Normal Yes Phasic Yes Left Superficial Femoral Normal Yes Phasic Yes Left Popliteal Normal Yes Phasic Yes Left Posterior Tibial Normal Yes Phasic Yes Left Peroneal Normal Yes Phasic Yes Left Great Saphenous Normal Yes Phasic Yes Left Lesser Saphenous Normal Yes Phasic Yes Updated by Emil Canales MD on 11/21/2016 8:15:05 AM electronically signed on 11/21/2016 8:15:16 AM with status of Final
--- NOTE | 2016-11-23 08:33 | Electrocardiograph Report ---
[address] [place] [address] Test Date: 2016-11-18 Pat Name: Mendy Boyce Department: 104 Room: [facility] Gender: F Hogshead Opener: : 1930 Requested By: Zahira Cobos Order Number: [id number] Reading MD: Abdirashid Knight DO Measurements Intervals Spelter Rate: 89 P: 47 NC: 140 QRS: 41 QRSD: 64 T: 36 QT: 392 QTc: 438 Interpretive Statements SINUS RHYTHM WITH OCCASIONAL SUPRAVENTRICULAR PREMATURE COMPLEXES LEFT VENTRICULAR HYPERTROPHY AND ST-T CHANGE Electronically Signed On 11-22-2016 9:10:57 EDT by Abdirashid Knight DO
--- NOTE | 2016-11-23 18:01 | Internal Med Progress Note ---
Date of Encounter: 11/23/16 Time of Encounter: 14:00 - Assessment and plan (1) Acute encephalopathy Current Visit: Yes Status: Acute Assessment and plan: Patient likely has delirium due to elderly age, underlying dementia, hospitalization and dehydration. No evidence of infection. Improving agitation , off sitter today. Will use when necessary IV Haldol, Ativan and continue oral Risperdal. Physical and occupational therapy evaluation noted, recommend placement in extended care facility. student services coordinator consulted, patient has been accepted at [facility]. Patient can be transferred if she remains off sitter for at least 24 hrs. (2) Hypokalemia Current Visit: Yes Status: Resolved (3) Closed right hip fracture Current Visit: Yes Status: Chronic Assessment and plan: Incidental finding of right hip fracture on CT pelvis, however this is noted to be old and patient does not report any pertaining symptoms. Has been evaluated by orthopedic surgery, who recommended conservative management at this time without symptoms. Physical and occupational therapy daily. Qualifiers: Encounter type: initial encounter Qualified Code(s): S72.001A - Fracture of unspecified part of neck of right femur, initial encounter for closed fracture (4) Elevated troponin Current Visit: Yes Status: Resolved (5) Abdominal tenderness Current Visit: Yes Status: Resolved Qualifiers: Abdominal location: right upper quadrant Presence of rebound: not specified Qualified Code(s): R10.811 - Right upper quadrant abdominal tenderness (6) Left leg swelling Current Visit: Yes Status: Resolved (7) Rhabdomyolysis Current Visit: Yes Status: Resolved Qualifiers: Rhabdomyolysis type: non-traumatic Qualified Code(s): M62.82 - Rhabdomyolysis (8) Essential hypertension Current Visit: Yes Status: Chronic Assessment and plan: BP and HR better controlled today. Continue oral Norvasc and when necessary IV hydralazine and oral metoprolol. (9) Hypernatremia Current Visit: Yes Status: Acute Assessment and plan: Patient is noted to have hypernatremia and hyperkalemia, likely related to IV hydration with normal saline. Monitor BMP. - Subjective Interval history: Noted to be trying to open a [employer] bottle, helped her with it. She reports feeling well, but otherwise disoriented and confused, unable to provide history , rambles and speaks inappropriately. - Constitutional Vitals: Temp Pulse Resp BP Pulse Ox 98.1 F 94 18 160/78 97 11/23/16 14:35 11/23/16 14:35 11/23/16 14:35 11/23/16 14:35 11/23/16 14:35 General appearance: Present: A&O X 1. Absent: answers questions appropriately - Respiratory Respiratory exam: Present: CTAB. Absent: accessory muscle use, rales, rhonchi, wheezes - Cardiovascular Cardiovascular exam: Present: RRR, +S1, +S2. Absent: diastolic murmur, gallop, rubs, systolic murmur - GI/Abdominal GI/Abdominal exam: Present: normal bowel sounds, soft, no peritoneal signs. Absent: distended, tenderness Internal Medicine: Result - Labs CBC & Chem 7: 11/20/16 06:46 11/21/16 04:52 Consult Discharge Plan - Plan Referrals: NONE,PCP [Primary Care Provider] -
[2016-11-24] MEDS: *HR* Heparin 5,000 UNIT/ML VIAL SQ SCH (05:30)
[2016-11-24 06:53] LABS: BUN/Creatinine Ratio 29 (6-26); Blood Urea Nitrogen 19 mg/dL (7-20); Calcium 8.1 mg/dL (8.6-10.8); Carbon Dioxide 25 mEq/L (19-29); Chloride 108 mEq/L (98-109); Glucose 95 mg/dL (70-99); Osmolality,Calculated 292 (280-300); Potassium 3.9 mEq/L (3.5-4.5); Sodium 140 mEq/L (136-145); eGFR For African Americans > 60 (> 60); eGFR For Non-African Americans > 60 (> 60)
[2016-11-24] MEDS: risperiDONE 0.25 MG TABLET PO SCH (09:21)
[2016-11-24] MEDS: amLODIPine 5 MG TABLET PO SCH (09:21)
[2016-11-24 15:32] VITALS: BP 132/65
--- NOTE | 2016-11-24 17:06 | Discharge Summary ---
Date of Encounter: 11/24/16 Time of Encounter: 17:16 - Discharge Diagnosis (1) Acute encephalopathy Priority: Primary Status: Acute Comments: Mendy mcmahan is an 86-year-old female with past medical history dementia who presented to [facility] on 11/18/2016 after being found down at home for unknown amount of time. She was dehydrated and and rhabdomyolysis. Hospital course prolonged due to acute encephalopathy requiring medication adjustments and one- to-one sitter. Her rhabdomyolysis resolved with IV fluids. Mental status improved back to baseline. She was discharged to ECF in stable condition. with agitation, required one-to-one sitter for safety. Suspect acute delirium secondary to underlying dementia, prolonged hospitalization and dehydration. Appears to be back at baseline. Alert to self only. Continue Risperdal as symptoms improved. Defer further medication adjustment per ECF physician. (2) Closed right hip fracture Priority: Primary Status: Chronic Comments: Incidental finding of right hip fracture on CT pelvis, however this is noted to be old and patient unable to articulate surrounding events. Evaluated by orthopedic surgery, who recommended conservative management. Cont PT/OT as able at SNF/ECF Qualifiers: Encounter type: initial encounter Qualified Code(s): S72.001A - Fracture of unspecified part of neck of right femur, initial encounter for closed fracture (3) Electrolyte abnormality Priority: Primary Status: Acute Comments: With hypernatremia and hypokalemia. Hypernatremia resolved with IV fluids, hypokalemia resolved with replacement. Recommend intermittent monitoring of CMP at ECF. (4) Hypertension Priority: Primary Status: Acute Comments: per hx. BP controlled. Not on BP medications at home. BP can be monitored at ECF/SNF. BP controlled at time of discharge. Qualifiers: Hypertension type: essential hypertension Qualified Code(s): I10 - Essential (primary) hypertension - Discharge Medications Prescriptions: amLODIPine [Norvasc] 5 mg PO DAILY #30 tablet Metoprolol [Lopressor] 12.5 mg PO BID #60 tablet risperiDONE [RisperDAL] 0.25 mg PO DAILY #30 tablet Home Medications: Metoprolol [Lopressor] 12.5 mg PO BID #60 tablet 11/24/16 [Rx] amLODIPine [Norvasc] 5 mg PO DAILY #30 tablet 11/24/16 [Rx] risperiDONE [RisperDAL] 0.25 mg PO DAILY #30 tablet 11/24/16 [Rx] Allergies/Adverse Reactions: 3 Allergy/AdvReac Type Severity Reaction Status Date / Time No Known Allergies Allergy Verified 11/19/15 19:34 Date of admission: 11/19/16 12:55 Primary care physician: PCP NONE Discharging clinician: Lexi Bernard Anticipated date of discharge: 11/24/16 - Patient Status Disposition: Transfer SNF Condition: Fair Overall status at discharge: patient is progressing back to baseline - Discharge Instructions Follow Up With: NONE,PCP [Primary Care Provider] - - Diet and Activity Activity: as per physical therapy Diet: advance to your usual diet Interval History: Season examined at bedside, patient is new to me. Information obtained from chart review and patient report. Patient is alert to name only, unable to obtain subjective information or review of systems information from patient. She does not appear to be in distress at time of my exam. Hospital course: See assessment and plan for hospital course - Time Spent with Patient Total time spent providing and/or coordinating discharge services: Greater than 30 minutes (36 minutes spent on discharge) - Constitutional Vitals: Temp Pulse Resp BP Pulse Ox 99.0 F 105 16 132/65 96 11/24/16 15:30 11/24/16 15:30 11/24/16 15:30 11/24/16 15:30 11/24/16 15:30 General appearance: Present: cachectic, A&O X 1. Absent: answers questions appropriately - Head Head exam: Present: atraumatic, normocephalic - Eye Eye exam: Present: PERRL, conjuntiva pink, sclera anicteric Pupils: Present: PERRL - Neck Neck exam general surgery: Present: supple, trachea midline. Absent: lymphadenopathy - Respiratory Respiratory exam: Present: CTAB. Absent: accessory muscle use, rales, rhonchi, wheezes - Cardiovascular Cardiovascular exam: Present: RRR, +S1, +S2. Absent: diastolic murmur, gallop, rubs, systolic murmur - GI/Abdominal GI/Abdominal exam: Present: normal bowel sounds, soft, no peritoneal signs. Absent: distended, tenderness - Extremities Exam Extremities exam: Present: warm, radial pulses palpable and symmetrical. Absent : calf tenderness, cyanotic, pedal edema - Neurological Exam Neurological exam: Present: CN II-XII intact, oriented X3, no focal deficits. Absent: pronater drift, facial droop, speech deficit - Skin Skin exam: Present: dry, intact
--- NOTE | 2016-11-24 17:36 | Physician Discharge Referral ---
ExtendedCare Referral Info Transfer To: [facility] Provider in Charge: Lexi Bernard CNP Provider in Charge after Transfer: PCP, Other ([facility] physician) Institutional Level of Care: Skilled - Diagnosis (1) Acute encephalopathy Status: Acute (2) Closed right hip fracture Status: Chronic (3) Electrolyte abnormality Status: Acute (4) Hypertension Status: Acute - Transfer Medications Prescriptions: amLODIPine [Norvasc] 5 mg PO DAILY #30 tablet Metoprolol [Lopressor] 12.5 mg PO BID #60 tablet risperiDONE [RisperDAL] 0.25 mg PO DAILY #30 tablet Home Medications: Metoprolol [Lopressor] 12.5 mg PO BID #60 tablet 11/24/16 [Rx] amLODIPine [Norvasc] 5 mg PO DAILY #30 tablet 11/24/16 [Rx] risperiDONE [RisperDAL] 0.25 mg PO DAILY #30 tablet 11/24/16 [Rx] Allergies/Adverse Reactions: 3 Allergy/AdvReac Type Severity Reaction Status Date / Time No Known Allergies Allergy Verified 11/19/15 19:34 - Respiratory Orders None Smoking Cessation: Smoking cessation has been advised. For more information, call the [place] Tobacco Quit Line at 8-283-XSSC-NOW. - Lab Orders Lab Orders: Other (include drug levels w/frequency) (Per [facility] physician) - Advance Directives Code Status: Full Code - Mobility Orders Other (Per therapy at [facility]) - Rehabiliation Orders Rehab Potential: Fair Rehab Orders: Evaluation for Physical Therapy, Evaluation for Occupational Therapy, Evaluation for Speech Therapy - Diet Orders Regular CERTIFICATION: I certify that the transfer of the above named patient to an Extended Care Facility is necessary for the continuing treatment of the diagnosis listed. The above information is true and accurate reflection of patient's current condition. Confidential - Redisclosure prohibited without a patient's written consent.
== END 2016-11-24 19:50 | DRG 70 ==
LOC: 3NENU 14:11 → EMEROO 14:11 → SUATTDRO 18:50 → 3NENU 19:10
PROVIDERS: ADMIT Nurse Practitioner Family; ATTEND Internal Medicine

== ENCOUNTER 2017-01-13 17:12 | Inpatient (IN) ==
[2017-01-13] MEDS ORDERED: 0.9 % Sodium Chloride 1,000 ML IVC ONE (17:24)
--- NOTE | 2017-01-13 17:32 | Emergency Department Note ---
Disposition Clinical Impression: HCAP (healthcare-associated pneumonia), Elevated troponin Sepsis Qualifiers: Sepsis type: sepsis due to unspecified organism Qualified Code(s): A41.9 - Sepsis, unspecified organism Disposition: Admitted As Inpatient Condition: Fair Referrals: NONE,PCP [Primary Care Provider] - Forms: ED Satisfaction Letter General Adult HPI - General Chief complaint: ED Fever Stated complaint: increased heart rate Time Seen by Provider: 01/13/17 17:15 Source: EMS Mode of arrival: EMS Limitations: altered mental status Nursing Notes Reviewed: Yes Vital Signs Reviewed: Yes - History of Present Illness HPI Narrative: 86-year-old female presents to the ER via EMS from intermediate facility due to tachycardia. Report is that she has a baseline history of dementia. Also reports that she is currently being treated for pneumonia as an outpatient. Patient was noted to be tachycardic today brought in for evaluation. She is alert and oriented 2 here. There is no one present to confirm that this is her baseline. She is a poor historian and is really unable to give a pertinent review of systems. She is noted to be tachycardic in the low 100s in the room as well as tachypneic to 30. She is 98-100% on room air. Normotensive currently in the room. She voices no complaints. Pt Subjective Complaint: Tachycardia Onset (ago): unknown Improves with: nothing Worsens with: nothing Associated symptoms: Reports: denies other symptoms Treatments Prior to Arrival: other (Antibiotic) - Related Data Previous Rx's Medication Instructions Recorded Metoprolol [Lopressor] 12.5 mg PO BID #60 tablet 11/24/16 amLODIPine [Norvasc] 5 mg PO DAILY #30 tablet 11/24/16 risperiDONE [RisperDAL] 0.25 mg PO DAILY #30 tablet 11/24/16 Allergies Allergy/AdvReac Type Severity Reaction Status Date / Time No Known Allergies Allergy Verified 11/19/15 19:34 Limitations: ROS unobtainable due to patients medical condition Past Medical History - Past Medical History Source: old records reviewed Medical history: Reports: cancer, dementia, other Surgical history: Reports: cholecystectomy, other Psychiatric history: Reports: no psych history MEDICAL SONOGRAPHER history: Reports: no MEDICAL SONOGRAPHER history - Social History Smoking Status: Never smoker Smokeless Tobacco Status: No Alcohol use: Reports: none Drug use: Reports: none Physical Exam - General Limitations: altered mental status General appearance: alert, in no apparent distress - Head Head exam: atraumatic, normocephalic - Eye Eye exam: Present: normal appearance - ENT ENT exam: normal exam - Neck Neck exam: Present: normal inspection - Chest Chest inspection: Present: normal inspection, symmetric chest wall rise - Respiratory Respiratory exam: Present: normal lung sounds bilaterally. Absent: respiratory distress, wheezes, stridor, prolonged expiratory phase - Cardiovascular Cardiovascular exam: Present: normal rhythm, tachycardia, normal heart sounds - Abdominal Exam Abdominal exam: Present: soft, Non-Tender. Absent: tenderness, distention, guarding, rigidity - Extremities Exam Extremities exam: Present: normal inspection, full ROM - Expanded Upper Extremity Exam Shoulder exam: Present: normal inspection, full ROM Arm exam: Present: normal inspection, full ROM Elbow exam: Present: normal inspection, full ROM Forearm/Wrist exam: Present: normal inspection, full ROM Hand exam: Present: normal inspection, full ROM Vascular exam: Normal: radial pulse - Expanded Lower Extremity Exam Hip/Pelvis exam: Present: normal inspection, full ROM Upper leg exam: Present: normal inspection, full ROM Knee exam: Present: normal inspection, full ROM Lower leg exam: Present: normal inspection, full ROM Ankle exam: Present: normal inspection, full ROM Foot/toe exam: Present: normal inspection, full ROM - Neurological Exam Neurological exam: Present: alert, other (Nonfocal neurologic exam. Moves all extremities equally.). Absent: oriented X3 - Expanded Neurological Exam Patient oriented to: Present: person, place Speech: Present: fluid speech Coma Scale Eye Opening: Spontaneous Coma Scale Motor Response: Obeys Commands Coma Scale Verbal Response: Confused Coma Scale Total: 14 - Psychiatric Psychiatric exam: Present: normal affect - Skin Skin exam: Present: warm, dry Course Course Narrative: Patient seen and examined. She met Sirs criteria. EKG, chest x-ray as well as labs including lactate, cultures ordered. We will start with 1 L of normal saline for resuscitation. - Reevaluation(s) Reevaluation #1: Patient remains tachycardic after 1 L fluids. An extra 500 mL ordered. We will discuss with the hospitalist given findings of multifocal pneumonia. Vital Signs Temperature 99.1 F 01/13/17 17:17 Pulse Rate 104 01/13/17 17:17 Respiratory Rate 24 01/13/17 17:17 Blood Pressure 140/51 01/13/17 17:17 O2 Sat by Pulse Oximetry 93 01/13/17 17:17 Temperature 99.1 F 01/13/17 17:33 Pulse Rate 105 01/13/17 17:33 Respiratory Rate 16 01/13/17 17:33 Blood Pressure 140/51 01/13/17 17:33 O2 Sat by Pulse Oximetry 99 01/13/17 17:38 Oxygen Delivery Oxygen Delivery Nasal Cannula Medical Decision Making - MDM Narrative Medical decision making narrative: 86-year-old female presents to the ER due to tachycardia and pneumonia. Alert and oriented 2 a known of this is her baseline. There is a reported history of dementia. She was being treated outpatient for pneumonia. She is tachypneic and tachycardic here. Saturating she has a slight elevated white count of 13. Lactate is normal. Troponin 0.07 without ischemic features of her EKG. Aspirin given. Patient treated with vancomycin and Zosyn and Levaquin for healthcare associated pneumonia. Admitted to the hospitalist service. - Lab Data Lab results reviewed: Yes I reviewed the patient's lab results. Result diagrams: 01/13/17 17:32 01/13/17 17:32 Lab Results 01/13/17 01/13/17 01/13/17 Range/Units 17:32 17:32 17:32 WBC 13.1 H (4.3-11.1) K/mcL RBC 3.24 L (3.82-4.97) M/mcL Hgb 8.8 L (11.5-15.4) g/dL Hct 27.0 L (35.3-44.9) % MCV 83.3 (83.0-100.0) fL MCH 27.2 L (28.0-33.3) pg MCHC 32.6 (31.6-35.5) g/dL RDW 15.1 H (11.5-14.5) % Plt Count 231 (140-400) K/mcL MPV 10.6 (9.4-12.4) fL Immature Gran % 0.9 (0-4) % Seg Neutrophils % 90.2 % Lymphocytes % 3.6 % Monocytes % 5.2 % Eosinophils % 0.0 % Basophils % 0.1 % Neutrophils # 11.8 H (1.6-8.9) K/mcL Lymphocytes # 0.5 L (0.6-4.6) K/mcL Monocytes # 0.7 (0.0-1.3) K/mcL Eosinophils # 0.0 (0.0-0.6) K/mcL Basophils # 0.0 (0.0-0.2) K/mcL PT 12.5 H (9.4-12.1) Seconds INR 1.2 APTT 26.3 (26.0-36.0) Seconds Sodium 139 (136-145) mEq/L Potassium 3.4 L (3.5-4.5) mEq/L Chloride 107 (98-109) mEq/L Carbon Dioxide 24 (19-29) mEq/L BUN 33 H (7-20) mg/dL Creatinine 0.82 (0.57-1.11) mg/dL Est GFR ( Amer) > 60 (> 60) Est GFR (Non-Af Amer) > 60 (> 60) BUN/Creatinine Ratio 40 H (6-26) Glucose 137 H (70-99) mg/dL Calculated Osmolality 297 (280-300) Lactic Acid (0.5-2.2) mmol/L Calcium 8.6 (8.6-10.8) mg/dL Total Bilirubin 0.5 (0.2-1.2) mg/dL Direct Bilirubin 0.2 (0.0-0.5) mg/dL Indirect Bilirubin 0.3 (0.0-1.2) mg/dL AST 26 (5-34) Units/L ALT 19 (0-55) Units/L Alkaline Phosphatase 68 (38-126) Units/L Troponin I (0-0.03) ng/mL B-Natriuretic Peptide (0-100) pg/mL Serum Total Protein 6.3 (6.0-8.3) g/dL Albumin 2.1 L (3.5-5.0) g/dL Globulin 4.2 H (2.4-3.5) g/dL Albumin/Globulin Ratio 0.5 L (1.1-2.2) 01/13/17 01/13/17 01/13/17 Range/Units 17:32 17:32 17:32 WBC (4.3-11.1) K/mcL RBC (3.82-4.97) M/mcL Hgb (11.5-15.4) g/dL Hct (35.3-44.9) % MCV (83.0-100.0) fL MCH (28.0-33.3) pg MCHC (31.6-35.5) g/dL RDW (11.5-14.5) % Plt Count (140-400) K/mcL MPV (9.4-12.4) fL Immature Gran % (0-4) % Seg Neutrophils % % Lymphocytes % % Monocytes % % Eosinophils % % Basophils % % Neutrophils # (1.6-8.9) K/mcL Lymphocytes # (0.6-4.6) K/mcL Monocytes # (0.0-1.3) K/mcL Eosinophils # (0.0-0.6) K/mcL Basophils # (0.0-0.2) K/mcL PT (9.4-12.1) Seconds INR APTT (26.0-36.0) Seconds Sodium (136-145) mEq/L Potassium (3.5-4.5) mEq/L Chloride (98-109) mEq/L Carbon Dioxide (19-29) mEq/L BUN (7-20) mg/dL Creatinine (0.57-1.11) mg/dL Est GFR ( Amer) (> 60) Est GFR (Non-Af Amer) (> 60) BUN/Creatinine Ratio (6-26) Glucose (70-99) mg/dL Calculated Osmolality (280-300) Lactic Acid 1.3 (0.5-2.2) mmol/L Calcium (8.6-10.8) mg/dL Total Bilirubin (0.2-1.2) mg/dL Direct Bilirubin (0.0-0.5) mg/dL Indirect Bilirubin (0.0-1.2) mg/dL AST (5-34) Units/L ALT (0-55) Units/L Alkaline Phosphatase (38-126) Units/L Troponin I 0.07 H* (0-0.03) ng/mL B-Natriuretic Peptide 319 H (0-100) pg/mL Serum Total Protein (6.0-8.3) g/dL Albumin (3.5-5.0) g/dL Globulin (2.4-3.5) g/dL Albumin/Globulin Ratio (1.1-2.2) - Radiology Data Radiology results reviewed: Yes I reviewed the patient's radiology results. Chest X-Ray 01/13/17 17:17 IMPRESSION: Evidence for a multi lobar pneumonia D/ / Yury Olivarez MD / Yury Olivarez MD Interpreting Provider: Yury Olivarez MD - EKG Data EKG #1 EKG attestation: Yes I reviewed and interpreted this EKG. EKG results narrative: EKG demonstrates sinus tachycardia with rate 103. Normal axis. Normal intervals. Normal R-wave progression. No gross ST elevations or depressions. No acute ischemic findings. No significant changes from previous EKG dated 11/18. Arjun - Arjun Situation: Demographics, MOA Background: Presenting Complaint, Relevant PMH, Meds, & Allergies Assessment: Vital Signs, Course and respsone to treatment, Exam Concerns, Patient/Family Expectation, Pertinant Lab Results Recommendation: Barrier(s) to disposition, Recommendation based on pending studies, treatments, or consults Arjun Report Given to: Dr. Tab Díaz Repor Time: 18:34
--- NOTE | 2017-01-13 17:35 | Emergency Department Note ---
Disposition Clinical Impression: HCAP (healthcare-associated pneumonia), Elevated troponin Sepsis Qualifiers: Sepsis type: sepsis due to unspecified organism Qualified Code(s): A41.9 - Sepsis, unspecified organism Disposition: Admitted As Inpatient Condition: Fair General Adult HPI - General Chief complaint: ED Fever Stated complaint: increased heart rate Time Seen by Provider: 01/13/17 17:15 Source: EMS Mode of arrival: EMS Limitations: altered mental status Nursing Notes Reviewed: Yes Vital Signs Reviewed: Yes - History of Present Illness Pain Scale: 0 Improves with: nothing Worsens with: nothing Associated symptoms: Reports: denies other symptoms Treatments Prior to Arrival: other (Antibiotic) - Related Data Previous Rx's Medication Instructions Recorded Metoprolol [Lopressor] 12.5 mg PO BID #60 tablet 11/24/16 amLODIPine [Norvasc] 5 mg PO DAILY #30 tablet 11/24/16 risperiDONE [RisperDAL] 0.25 mg PO DAILY #30 tablet 11/24/16 Allergies Allergy/AdvReac Type Severity Reaction Status Date / Time No Known Allergies Allergy Verified 11/19/15 19:34 Past Medical History - Past Medical History Medical history: Reports: cancer, dementia, other Surgical history: Reports: cholecystectomy, other Psychiatric history: Reports: no psych history COACH DRIVER history: Reports: no COACH DRIVER history - Social History Smoking Status: Never smoker Smokeless Tobacco Status: No Alcohol use: Reports: none Drug use: Reports: none Physical Exam - General Limitations: altered mental status General appearance: alert, in no apparent distress Course Vital Signs Temperature 99.1 F 01/13/17 17:17 Pulse Rate 104 01/13/17 17:17 Respiratory Rate 24 01/13/17 17:17 Blood Pressure 140/51 01/13/17 17:17 O2 Sat by Pulse Oximetry 93 01/13/17 17:17 Temperature 99.1 F 01/13/17 17:33 Pulse Rate 105 01/13/17 17:33 Respiratory Rate 16 01/13/17 17:33 Blood Pressure 140/51 01/13/17 17:33 O2 Sat by Pulse Oximetry 99 01/13/17 17:38 Oxygen Delivery Oxygen Delivery Nasal Cannula Medical Decision Making - [facility] Narrative Medical decision making narrative: I examined this patient and my medical decision-making was reviewed with the Resident Physician. I agree with the documented findings, disposition and treatment plan as described except to the extent set forth below. Patient seen and evaluated by Dr. Akers, I agree with his evaluation and management plan, supervised care the patient's stay. Patient comes from a nursing facility. The center because of tachycardia. She is currently being treated for pneumonia or heart rates between 101 -110 she smiling she will admit anything being wrong but she says about 1 or 2 words and apparently at her baseline. Reticulocyte check labs on her repeat chest x-ray EKG and reassess. She is in agreement with plan. Chest X-Ray 01/13/17 17:17 IMPRESSION: Evidence for a multi lobar pneumonia D/ / Yury Olivarez MD / Yury Olivarez MD Interpreting Provider: Yury Olivarez MD 1800 hrs.: We will verify her antibiotics that she is on the nursing facility and determine if we need to change those And bring her into the hospital. 1808 hrs.: Since she has been in the nursing facility with persistent pneumonia we will treat her as healthcare acquired pneumonia. And bring her into the hospital. 1810 hrs.: The lab called and said her troponin was 0.07. It is uncertain whether patient's any chest pain or not when he asked her she denies but her history changes lot she seems to be an unreliable historian. That will need repeated in the hospital. - Lab Data Result diagrams: 01/13/17 17:32 01/13/17 17:32 Lab Results 01/13/17 01/13/17 01/13/17 Range/Units 17:32 17:32 17:32 WBC 13.1 H (4.3-11.1) K/mcL RBC 3.24 L (3.82-4.97) M/mcL Hgb 8.8 L (11.5-15.4) g/dL Hct 27.0 L (35.3-44.9) % MCV 83.3 (83.0-100.0) fL MCH 27.2 L (28.0-33.3) pg MCHC 32.6 (31.6-35.5) g/dL RDW 15.1 H (11.5-14.5) % Plt Count 231 (140-400) K/mcL MPV 10.6 (9.4-12.4) fL Immature Gran % 0.9 (0-4) % Seg Neutrophils % 90.2 % Lymphocytes % 3.6 % Monocytes % 5.2 % Eosinophils % 0.0 % Basophils % 0.1 % Neutrophils # 11.8 H (1.6-8.9) K/mcL Lymphocytes # 0.5 L (0.6-4.6) K/mcL Monocytes # 0.7 (0.0-1.3) K/mcL Eosinophils # 0.0 (0.0-0.6) K/mcL Basophils # 0.0 (0.0-0.2) K/mcL PT 12.5 H (9.4-12.1) Seconds INR 1.2 APTT 26.3 (26.0-36.0) Seconds Sodium 139 (136-145) mEq/L Potassium 3.4 L (3.5-4.5) mEq/L Chloride 107 (98-109) mEq/L Carbon Dioxide 24 (19-29) mEq/L BUN 33 H (7-20) mg/dL Creatinine 0.82 (0.57-1.11) mg/dL Est GFR ( Amer) > 60 (> 60) Est GFR (Non-Af Amer) > 60 (> 60) BUN/Creatinine Ratio 40 H (6-26) Glucose 137 H (70-99) mg/dL Calculated Osmolality 297 (280-300) Lactic Acid (0.5-2.2) mmol/L Calcium 8.6 (8.6-10.8) mg/dL Total Bilirubin 0.5 (0.2-1.2) mg/dL Direct Bilirubin 0.2 (0.0-0.5) mg/dL Indirect Bilirubin 0.3 (0.0-1.2) mg/dL AST 26 (5-34) Units/L ALT 19 (0-55) Units/L Alkaline Phosphatase 68 (38-126) Units/L Troponin I (0-0.03) ng/mL B-Natriuretic Peptide (0-100) pg/mL Serum Total Protein 6.3 (6.0-8.3) g/dL Albumin 2.1 L (3.5-5.0) g/dL Globulin 4.2 H (2.4-3.5) g/dL Albumin/Globulin Ratio 0.5 L (1.1-2.2) 01/13/17 01/13/17 01/13/17 Range/Units 17:32 17:32 17:32 WBC (4.3-11.1) K/mcL RBC (3.82-4.97) M/mcL Hgb (11.5-15.4) g/dL Hct (35.3-44.9) % MCV (83.0-100.0) fL MCH (28.0-33.3) pg MCHC (31.6-35.5) g/dL RDW (11.5-14.5) % Plt Count (140-400) K/mcL MPV (9.4-12.4) fL Immature Gran % (0-4) % Seg Neutrophils % % Lymphocytes % % Monocytes % % Eosinophils % % Basophils % % Neutrophils # (1.6-8.9) K/mcL Lymphocytes # (0.6-4.6) K/mcL Monocytes # (0.0-1.3) K/mcL Eosinophils # (0.0-0.6) K/mcL Basophils # (0.0-0.2) K/mcL PT (9.4-12.1) Seconds INR APTT (26.0-36.0) Seconds Sodium (136-145) mEq/L Potassium (3.5-4.5) mEq/L Chloride (98-109) mEq/L Carbon Dioxide (19-29) mEq/L BUN (7-20) mg/dL Creatinine (0.57-1.11) mg/dL Est GFR ( Amer) (> 60) Est GFR (Non-Af Amer) (> 60) BUN/Creatinine Ratio (6-26) Glucose (70-99) mg/dL Calculated Osmolality (280-300) Lactic Acid 1.3 (0.5-2.2) mmol/L Calcium (8.6-10.8) mg/dL Total Bilirubin (0.2-1.2) mg/dL Direct Bilirubin (0.0-0.5) mg/dL Indirect Bilirubin (0.0-1.2) mg/dL AST (5-34) Units/L ALT (0-55) Units/L Alkaline Phosphatase (38-126) Units/L Troponin I 0.07 H* (0-0.03) ng/mL B-Natriuretic Peptide 319 H (0-100) pg/mL Serum Total Protein (6.0-8.3) g/dL Albumin (3.5-5.0) g/dL Globulin (2.4-3.5) g/dL Albumin/Globulin Ratio (1.1-2.2)
[2017-01-13 17:46] LABS: Basophils % 0.1 %; Hemoglobin 8.8 g/dL (11.5-15.4); Immature Granulocytes % 0.9 % (0-4); Lymphocytes # 0.5 K/mcL (0.6-4.6); Lymphocytes % 3.6 %; Mean Corpuscular HGB Conc 32.6 g/dL (31.6-35.5); Mean Corpuscular Hemoglobin 27.2 pg (28.0-33.3); Mean Corpuscular Volume 83.3 fL (83.0-100.0); Mean Platelet Volume 10.6 fL (9.4-12.4); Monocytes # 0.7 K/mcL (0.0-1.3); Monocytes % 5.2 %; Neutrophils # 11.8 K/mcL (1.6-8.9); Platelet Count 231 K/mcL (140-400); Red Blood Count 3.24 M/mcL (3.82-4.97); Red Cell Distribution Width 15.1 % (11.5-14.5); Segmented Neutrophils % 90.2 %
[2017-01-13 17:51] LABS: INR 1.2; Prothrombin Time 12.5 Seconds (9.4-12.1)
[2017-01-13 17:54] LABS: Activated Partial Thrombo Time 26.3 Seconds (26.0-36.0)
[2017-01-13 18:00] LABS: Alanine Aminotransferase 19 Units/L (0-55); Albumin 2.1 g/dL (3.5-5.0); Albumin/Globulin Ratio 0.5 (1.1-2.2); Alkaline Phosphatase 68 Units/L (38-126); Aspartate Amino Transferase 26 Units/L (5-34); BUN/Creatinine Ratio 40 (6-26); Bilirubin,Direct 0.2 mg/dL (0.0-0.5); Bilirubin,Indirect 0.3 mg/dL (0.0-1.2); Bilirubin,Total 0.5 mg/dL (0.2-1.2); Blood Urea Nitrogen 33 mg/dL (7-20); Calcium 8.6 mg/dL (8.6-10.8); Carbon Dioxide 24 mEq/L (19-29); Chloride 107 mEq/L (98-109); Globulin 4.2 g/dL (2.4-3.5); Glucose 137 mg/dL (70-99); Osmolality,Calculated 297 (280-300); Potassium 3.4 mEq/L (3.5-4.5); Sodium 139 mEq/L (136-145); Total Protein 6.3 g/dL (6.0-8.3); eGFR For African Americans > 60 (> 60); eGFR For Non-African Americans > 60 (> 60)
[2017-01-13] MEDS ORDERED: Vancomycin 750 MG in D5% in Water 250 ML IVPB SCH (18:00)
[2017-01-13] MEDS ORDERED: Levofloxacin 750 MG/150 ML 750 MG/150 ML BAG IVPB ONE (18:03)
[2017-01-13] MEDS ORDERED: Piperacillin/Tazobactam 3.375 GM in D5% in Water 50 ML IVPB ONE (18:03)
[2017-01-13] MEDS ORDERED: Vancomycin 1,000 MG in D5% in Water 250 ML IVPB ONE (18:03)
[2017-01-13] MEDS ORDERED: Aspirin 81 MG TAB.CHEW PO ONE (18:16)
[2017-01-13 18:42] LABS: Bilirubin,Urine Negative (Negative); Blood,Urine Small (Negative); Clarity,Urine Cloudy (Clear); Color,Urine Yellow (Yellow); Glucose,Urine (UA) Normal (Normal); Ketones,Urine Negative (Negative); Leukocyte Esterase,Urine Negative (Negative); Nitrite,Urine Negative (Negative); Protein,Urine 100 mg/dL (Neg-Trace); Specific Gravity,Urine 1.024 (1.010-1.025); Urobilinogen,Urine Normal (Normal)
[2017-01-13 18:43] LABS: Bacteria,Urine None Seen per hpf (None-Few); Squamous Epithelial Cell,Urine Many per lpf (None-Few)
[2017-01-13 18:59] LABS: Amorphous Sediment,Urine Moderate (Few)
[2017-01-13 19:00] LABS: Granular Casts,Urine Few per lpf (None Seen); Hyaline Casts,Urine Few per lpf (None-Few); Mucus,Urine Few (Few)
[2017-01-13] MEDS ORDERED: Naloxone 0.4 MG/ML INJ IVP PRN (20:37)
[2017-01-13] MEDS ORDERED: Mag Hydrox/Al Hydrox/Simeth 30 ML UDC PO PRN (20:43)
[2017-01-13] MEDS ORDERED: Acetaminophen 325 MG TABLET PO PRN (20:43)
[2017-01-13] MEDS ORDERED: Ipratropium/Albuterol Neb 3 ML IH PRN (20:43)
[2017-01-13] MEDS ORDERED: 0.9 % Sodium Chloride 1,000 ML IVC SCH (20:45)
--- NOTE | 2017-01-13 20:45 | Internal Med History&Physical ---
Date of Encounter: 01/13/17 Time of Encounter: 23:08 Assessment and Plan (1) Sepsis Current visit: Yes Status: Acute Patient met sepsis criteria with tachycardia, tachypnea, leukocytosis and evidence of multilobar pneumonia on CXR She remains afebrile She has dementia and mental status seems to be at baseline Continue gentle hydration Continue vanco/Zosyn/Levaquin De-escalate with blood culture reports Follow sputum culture Patient is DNR CCA Qualifiers: Sepsis type: sepsis due to unspecified organism Qualified Code(s): A41.9 - Sepsis, unspecified organism (2) HCAP (healthcare-associated pneumonia) Current visit: Yes Status: Acute As in sepsis (3) DVT prophylaxis Current visit: Yes Status: Acute lovenox SQ (4) Hypokalemia Current visit: Yes Status: Acute Replaced po, repeat Chem a.m (5) Hypertension Current visit: Yes Status: Chronic Resume home meds Qualifiers: Hypertension type: unspecified Qualified Code(s): I10 - Essential (primary ) hypertension (6) Elevated troponin Current visit: Yes Status: Acute Possibly due to demand ischemia or and tachycardia Patient is a poor historian, denies chest pain EKG showed sinus tachycardia only Cycle troponinX3 (7) Anemia Current visit: Yes Status: Chronic Chronic, continue to monitor Baseline Hb around 10 Presenting HB is 8.3 NO hematuria, lactate is normal. FOBT Continue to monitor Qualifiers: Anemia type: unspecified type Qualified Code(s): D64.9 - Anemia, unspecified Internal Medicine - H&P: HPI Chief complaint: Tachycardia Admitted From: Long-term Nursing Facility Plans for Post Hospital Care: Transfer [facility] Facility History of present illness: Ms. Boyec is a 86 year old female , resident of SNF with dementia She is sent to ER with complains of tachycardia per SNF Patient has dementia and her history is unreliable At time of review at bedside, her main complain is chills. And generalised pain Per EMR, she was referred from SNF due to persistent tachycardia, she has been receiving levaquin po for pneumonia treatment She is laying flat at my time of review, and her tachycardia is improving with IVF hydration EKG is sinus tachycardia Patient is oriented to place and person only and does not seem to be in any discomfort Work up is significant for multilobar pneumonia on CXR , hypokalemia, leukocytosis and anemia. Past Med Surg Social Fam HX - Past Medical History Medical history: cancer, dementia, other Psychiatric history: no psych history - Past Surgical History Surgical History: cholecystectomy, other - Social History Smoking Status: Never smoker Smokeless Tobacco Status: No Alcohol use: none Drug use: none - Family History Mother Living Status: Internal Medicine - H&P: Meds Acetaminophen [Tylenol 650mg SUPP] 650 mg RC Q4H PRN 01/13/17 [History] Acetaminophen [Tylenol] 650 mg PO Q4-6H PRN 01/13/17 [History] Ferrous Sulfate 325 mg PO DAILY 01/13/17 [History] Ipratropium/Albuterol Neb [Duoneb] 3 ml IH Q4HR 01/13/17 [History] Levofloxacin [Levaquin] 500 mg PO DAILY 01/13/17 [History] Loperamide HCl [Anti-Diarrheal] 2 mg PO Q12H PRN 01/13/17 [History] Mag Hydrox/Al Hydrox/Simeth [Antacid Suspension] 30 ml PO Q4H PRN 01/13/17 [ History] Magnesium Hydroxide [Milk of Magnesia] 2,400 mg PO Q4H PRN 01/13/17 [History] Metoprolol [Lopressor] 25 mg PO BID 01/13/17 [History] Phenol 1 ml MC Q4H PRN 01/13/17 [History] Quetiapine Fumarate [SEROquel] 25 mg PO Q6H PRN 01/13/17 [History] Quetiapine Fumarate [SEROquel] 100 mg PO HS 01/13/17 [History] amLODIPine [Norvasc] 5 mg PO HS 01/13/17 [History] traZODone [TraZODone] 25 mg PO HS 01/13/17 [History] 3 Allergy/AdvReac Type Severity Reaction Status Date / Time No Known Allergies Allergy Verified 11/19/15 19:34 ROS unobtainable: due to mental status All Systems PM: A 10-system review of systems was performed and is negative for pertinent findings except as documented above in the HPI. - Constitutional Vitals: Temp Pulse Resp BP Pulse Ox 98.3 F 109 16 133/56 96 01/13/17 20:08 01/13/17 20:08 01/13/17 20:08 01/13/17 20:08 01/13/17 20:08 General appearance: Present: cachectic, A&O X 2, pleasant, no acute distress - Head Head exam: Present: atraumatic, normocephalic - Eye Eye exam: Present: PERRL, conjuntiva pink, sclera anicteric Pupils: Present: PERRL - Neck Neck exam general surgery: Present: supple, trachea midline. Absent: lymphadenopathy - Respiratory Respiratory exam: Present: CTAB (anterior auscultation only. ). Absent: accessory muscle use, rales, rhonchi, wheezes - Cardiovascular Cardiovascular exam: Present: RRR, +S1, +S2, tachycardia. Absent: diastolic murmur, gallop, rubs, systolic murmur - GI/Abdominal GI/Abdominal exam: Present: normal bowel sounds, soft, no peritoneal signs. Absent: distended, tenderness - Extremities Exam Additional comments: Left vargas with dressing, clean and dry. No edema. - Neurological Exam Neurological exam: Present: alert, CN II-XII intact, no focal deficits. Absent : oriented X3, pronater drift, facial droop, speech deficit - Skin Skin exam: Present: dry Internal Med - H&P Results - Labs CBC & Chem 7: 01/13/17 17:32 01/13/17 17:32
[2017-01-13] MEDS: traZODone 50 MG TABLET PO SCH (22:21)
[2017-01-13] MEDS: amLODIPine 5 MG TABLET PO SCH (22:22)
[2017-01-14 00:49] LABS: BUN/Creatinine Ratio 40 (6-26); Blood Urea Nitrogen 27 mg/dL (7-20); Calcium 7.8 mg/dL (8.6-10.8); Carbon Dioxide 22 mEq/L (19-29); Chloride 110 mEq/L (98-109); Glucose 118 mg/dL (70-99); Magnesium 1.7 mg/dL (1.6-2.6); Osmolality,Calculated 294 (280-300); Phosphorous 1.6 mg/dL (2.3-4.7); Potassium 3.5 mEq/L (3.5-4.5); Sodium 139 mEq/L (136-145); eGFR For African Americans > 60 (> 60); eGFR For Non-African Americans > 60 (> 60)
[2017-01-14 00:51] LABS: Basophils % 0.1 %; Eosinophils % 0.2 %; Hematocrit 23.6 % (35.3-44.9); Hemoglobin 7.9 g/dL (11.5-15.4); Immature Granulocytes % 0.6 % (0-4); Lymphocytes # 0.5 K/mcL (0.6-4.6); Mean Corpuscular HGB Conc 33.5 g/dL (31.6-35.5); Mean Corpuscular Hemoglobin 27.8 pg (28.0-33.3); Mean Corpuscular Volume 83.1 fL (83.0-100.0); Mean Platelet Volume 10.7 fL (9.4-12.4); Monocytes # 0.6 K/mcL (0.0-1.3); Monocytes % 5.4 %; Neutrophils # 9.2 K/mcL (1.6-8.9); Platelet Count 201 K/mcL (140-400); Red Blood Count 2.84 M/mcL (3.82-4.97); Red Cell Distribution Width 15.1 % (11.5-14.5); Segmented Neutrophils % 88.7 %
[2017-01-14] MEDS ORDERED: Piperacillin/Tazobactam 3.375 GM in D5% in Water 50 ML IVPB SCH (03:00)
[2017-01-14] MEDS: Piperacillin/Tazobactam 3.375 GM in D5% in Water 50 ML IVPB SCH ×3 (04:12→22:52)
[2017-01-14] MEDS: *HR* Enoxaparin 30 MG/0.3 ML SYRINGE SQ SCH (06:50)
--- NOTE | 2017-01-14 07:24 | Internal Med Progress Note ---
<Lukas Gandara - Last Filed: 01/14/17 10:09> Date of Encounter: 01/14/17 Time of Encounter: 07:24 - Assessment and plan (1) Sepsis Current Visit: Yes Status: Acute Assessment and plan: Patient met sepsis criteria with tachycardia, tachypnea, leukocytosis and evidence of multilobar pneumonia on CXR She remains afebrile Continue gentle hydration Continue Zosyn/Levaquin (Day 2) Discontinue Vanc De-escalate with blood culture reports Follow sputum culture Patient is DNR CCA Qualifiers: Sepsis type: sepsis due to unspecified organism Qualified Code(s): A41.9 - Sepsis, unspecified organism (2) HCAP (healthcare-associated pneumonia) Current Visit: Yes Status: Acute Assessment and plan: Multilobar pneumonia on CXR She had difficulty with bedside swallow screen and is awaiting speech therapy evaluation to r/o aspiration Continue Zosyn/Levaquin (Day 2) Discontinue Vanc De-escalate with blood culture reports Follow sputum culture (3) Elevated troponin Current Visit: Yes Status: Acute Assessment and plan: Possibly due to demand ischemia or and tachycardia Patient is a poor historian, denies chest pain EKG showed sinus tachycardia only Serial troponin decreasing 0.07 --> 0.05 --> 0.04 DNRCCA code status and advanced dementia (4) Hypertension Current Visit: Yes Status: Chronic Assessment and plan: Resume home meds Qualifiers: Hypertension type: unspecified Qualified Code(s): I10 - Essential (primary ) hypertension (5) Anemia Current Visit: Yes Status: Chronic Assessment and plan: Chronic, continue to monitor Baseline HGB around 10 HGB 8.3 --> 7.9 No hematuria, lactate is normal. FOBT pending Continue to monitor Qualifiers: Anemia type: unspecified type Qualified Code(s): D64.9 - Anemia, unspecified (6) Dementia Current Visit: Yes Status: Acute Assessment and plan: She has dementia and mental status seems to be at baseline Qualifiers: Dementia type: unspecified type Qualified Code(s): F03.90 - Unspecified dementia without behavioral disturbance (7) DVT prophylaxis Current Visit: Yes Status: Acute Assessment and plan: Lovenox - Subjective Interval history: Patient seen and examined with RN at bedside. Patient is A&Ox1 and does not seem to be in any discomfort. She had difficulty with bedside swallow screen and is awaiting speech therapy evaluation. - Constitutional Vitals: Temp Pulse Resp BP Pulse Ox 97.5 F L 88 18 126/46 97 01/14/17 04:56 01/14/17 04:56 01/14/17 04:56 01/14/17 04:56 01/14/17 04:56 General appearance: Present: cachectic, A&O X 1, pleasant, no acute distress - Head Head exam: Present: atraumatic, normal inspection, normocephalic - Eye Eye exam: Present: EOMI, conjuntiva pink - ENT ENT exam: Present: mucous membranes dry Additional comments: mucous in oropharynx - Neck Neck exam general surgery: Present: normal inspection, supple - Respiratory Respiratory exam: Present: CTAB. Absent: accessory muscle use, respiratory distress, rhonchi, wheezes - Cardiovascular Cardiovascular exam: Present: RRR, +S1, +S2 - GI/Abdominal GI/Abdominal exam: Present: normal bowel sounds, soft. Absent: distended - Additional comments: no milton, no sacral ulcer, ecchymosis over coccyx - Extremities Exam Extremities exam: Present: full ROM, normal inspection, radial pulses palpable and symmetrical. Absent: pedal edema, tenderness - Back Exam Back exam: Present: tenderness (coccyx). Absent: paraspinal tenderness, vertebral tenderness - Neurological Exam Neurological exam: Present: altered. Absent: oriented X3, facial droop Additional comments: good manager domestic stength - Psychiatric Additional comments: unable to access - Skin Skin exam: Present: dry, warm Additional comments: no sacral ulcer, ecchymosis over coccyx Internal Medicine: Result - Labs CBC & Chem 7: 01/14/17 00:21 01/14/17 00:21 Labs: Short CBC 01/14/17 Range/Units 00:21 WBC 10.4 (4.3-11.1) K/mcL Hgb 7.9 L (11.5-15.4) g/dL Hct 23.6 L (35.3-44.9) % Plt Count 201 (140-400) K/mcL Neutrophils # 9.2 H (1.6-8.9) K/mcL BMP 01/14/17 00:21 Sodium 139 Potassium 3.5 Chloride 110 H Carbon Dioxide 22 BUN 27 H Creatinine 0.68 Glucose 118 H Calcium 7.8 L Cardiac Enzymes 01/14/17 01/14/17 Range/Units 00:21 05:42 Troponin I 0.05 H* 0.04 H* (0-0.03) ng/mL - ABG Interpretation ABG results: PT/INR, D-dimer PT 12.5 Seconds (9.4-12.1) H 01/13/17 17:32 - Pulse Oximetry Interpretation Digit-Finger Pulse Oximetry Readin (on 2 L O2 via NC) Consult Discharge Plan - Plan Referrals: NONE,PCP [Primary Care Provider] - <Justin Trujillo H - Last Filed: 01/14/17 10:45> Date of Encounter: 01/14/17 - Constitutional Vitals: Temp Pulse Resp BP Pulse Ox 97.5 F L 88 18 126/46 97 01/14/17 04:56 01/14/17 04:56 01/14/17 04:56 01/14/17 04:56 01/14/17 04:56 Internal Medicine: Result - Labs CBC & Chem 7: 01/14/17 00:21 01/14/17 00:21 Labs: Short CBC 01/14/17 Range/Units 00:21 WBC 10.4 (4.3-11.1) K/mcL Hgb 7.9 L (11.5-15.4) g/dL Hct 23.6 L (35.3-44.9) % Plt Count 201 (140-400) K/mcL Neutrophils # 9.2 H (1.6-8.9) K/mcL BMP 01/14/17 00:21 Sodium 139 Potassium 3.5 Chloride 110 H Carbon Dioxide 22 BUN 27 H Creatinine 0.68 Glucose 118 H Calcium 7.8 L Cardiac Enzymes 01/14/17 01/14/17 Range/Units 00:21 05:42 Troponin I 0.05 H* 0.04 H* (0-0.03) ng/mL - ABG Interpretation ABG results: PT/INR, D-dimer PT 12.5 Seconds (9.4-12.1) H 01/13/17 17:32 - Attending Attestation Acute metabolic encephalopathy likely secondary to sepsis due to healthcare associated pneumonia/gram-negative pneumonia present upon admission Continue Levaquin and Zosyn I examined this patient and my medical decision-making was reviewed with the Resident Physician. I agree with the documented findings, disposition and treatment plan as described except to the extent set forth below.
[2017-01-14] MEDS ORDERED: Aminoglycoside Consult 1 EACH MC ONE (08:53)
[2017-01-14] MEDS ORDERED: GuaiFENesin/Dextromethorphan TABLET PO SCH (10:15)
[2017-01-14] MEDS: Ipratropium/Albuterol Neb 3 ML IH SCH ×2 (16:25→22:48)
--- NOTE | 2017-01-14 17:56 | Electrocardiograph Report ---
[address] [place] [address] Test Date: 2017-01-13 Pat Name: Mendy Boyce Department: 104 Room: [facility] Gender: F Slaughterer Religious Ritual: SAMUEL : 1930 Requested By: Mihai Le Order Number: [id number] Reading MD: Vernon Mclaughlin MD Measurements Intervals [place] Rate: 103 P: 29 UT: 121 QRS: 15 QRSD: 80 T: 17 QT: 325 QTc: 385 Interpretive Statements SINUS TACHYCARDIA BASELINE ARTIFACT LEFT ATRIAL ENLARGEMENT Electronically Signed On 01-14-2017 17:54:41 EST by Vernon Mclaughlin MD
[2017-01-14] MEDS ORDERED: Vancomycin 750 MG in D5% in Water 250 ML IVPB SCH ×2 (18:00→21:00)
[2017-01-14] MEDS ORDERED: Levofloxacin 500 MG/100 ML 500 MG/100 ML BAG IVPB SCH (21:00)
[2017-01-14] MEDS: traZODone 50 MG TABLET PO SCH (22:53)
[2017-01-14] MEDS: amLODIPine 5 MG TABLET PO SCH (22:54)
[2017-01-15] MEDS: *HR* HYDROcodone/Acet 5/325 mg TABLET PO PRN ×2 (00:32→17:06)
[2017-01-15] MEDS: Sennosides/Docusate Sodium TABLET PO PRN ×2 (00:33→15:58)
[2017-01-15] MEDS: Ipratropium/Albuterol Neb 3 ML IH SCH ×3 (04:10→16:29)
[2017-01-15 05:40] LABS: Basophils % 0.1 %; Eosinophils # 0.1 K/mcL (0.0-0.6); Eosinophils % 0.8 %; Hematocrit 24.4 % (35.3-44.9); Hemoglobin 7.7 g/dL (11.5-15.4); Immature Granulocytes % 0.9 % (0-4); Lymphocytes # 0.9 K/mcL (0.6-4.6); Lymphocytes % 10.6 %; Mean Corpuscular HGB Conc 31.6 g/dL (31.6-35.5); Mean Corpuscular Hemoglobin 26.6 pg (28.0-33.3); Mean Corpuscular Volume 84.4 fL (83.0-100.0); Mean Platelet Volume 10.4 fL (9.4-12.4); Monocytes # 0.6 K/mcL (0.0-1.3); Monocytes % 6.3 %; Neutrophils # 7.2 K/mcL (1.6-8.9); Platelet Count 214 K/mcL (140-400); Red Blood Count 2.89 M/mcL (3.82-4.97); Red Cell Distribution Width 15.5 % (11.5-14.5); Segmented Neutrophils % 81.3 %
[2017-01-15 05:55] LABS: BUN/Creatinine Ratio 38 (6-26); Blood Urea Nitrogen 27 mg/dL (7-20); Calcium 7.7 mg/dL (8.6-10.8); Carbon Dioxide 20 mEq/L (19-29); Chloride 112 mEq/L (98-109); Glucose 114 mg/dL (70-99); Osmolality,Calculated 296 (280-300); Phosphorous 3.3 mg/dL (2.3-4.7); Potassium 3.8 mEq/L (3.5-4.5); Sodium 140 mEq/L (136-145); eGFR For African Americans > 60 (> 60); eGFR For Non-African Americans > 60 (> 60)
[2017-01-15] MEDS: *HR* Enoxaparin 30 MG/0.3 ML SYRINGE SQ SCH (06:44)
[2017-01-15] MEDS ORDERED: Piperacillin/Tazobactam 3.375 GM in D5% in Water 50 ML IVPB SCH (08:00)
--- NOTE | 2017-01-15 08:59 | Internal Med Progress Note ---
Date of Encounter: 01/15/17 Time of Encounter: 08:30 - Assessment and plan (1) Sepsis Current Visit: Yes Status: Acute Assessment and plan: Patient met sepsis criteria with tachycardia, tachypnea, leukocytosis and evidence of multilobar pneumonia on CXR She remains afebrile Continue gentle hydration Discontinue Vanc/Zosyn/Levaquin (Day 3) Order power glide, start Cefipime IV for 5 more days Follow sputum culture Patient is DNR CCA Qualifiers: Sepsis type: sepsis due to unspecified organism Qualified Code(s): A41.9 - Sepsis, unspecified organism (2) HCAP (healthcare-associated pneumonia) Current Visit: Yes Status: Acute Assessment and plan: Multilobar pneumonia on CXR Speech therapy evaluation negative for aspiration, started on mechanical soft, nectar thick liquids diet Continue Zosyn/Levaquin (Day 3) Discontinue Vanc De-escalate with blood culture reports Follow sputum culture (3) Acute urinary retention Current Visit: Yes Status: Acute Assessment and plan: Acute urinary retention noted by bladder scan, patient has not had urine output since 5 pm yesterday and has still not voided Milton inserted (4) Elevated troponin Current Visit: Yes Status: Acute Assessment and plan: Possibly due to demand ischemia or and tachycardia Patient is a poor historian, denies chest pain EKG showed sinus tachycardia only Serial troponin decreasing 0.07 --> 0.05 --> 0.04 DNRCCA code status and advanced dementia (5) Hypertension Current Visit: Yes Status: Chronic Assessment and plan: Resume home meds Qualifiers: Hypertension type: unspecified Qualified Code(s): I10 - Essential (primary ) hypertension (6) Anemia Current Visit: Yes Status: Chronic Assessment and plan: Chronic, continue to monitor Baseline HGB around 10 HGB 8.3 --> 7.9 No hematuria, lactate is normal. FOBT pending Hold home Iron due to acute infection Continue to monitor Qualifiers: Anemia type: unspecified type Qualified Code(s): D64.9 - Anemia, unspecified (7) Dementia Current Visit: Yes Status: Chronic Assessment and plan: She has advanced dementia and resides at [facility] Mental status seems to be at baseline Qualifiers: Dementia type: unspecified type Dementia behavioral disturbance: without behavioral disturbance Qualified Code(s): F03.90 - Unspecified dementia without behavioral disturbance (8) DVT prophylaxis Current Visit: Yes Status: Acute Assessment and plan: Lovenox - Subjective Interval history: Patient seen and examined. Patient is A&Ox1 and does not seem to be in any discomfort. She passed speech therapy evaluation and denies difficulty eating. - Constitutional Vitals: Temp Pulse Resp BP Pulse Ox 98.7 F 95 18 119/66 97 01/15/17 08:00 01/15/17 08:00 01/15/17 08:00 01/15/17 08:00 01/15/17 08:00 General appearance: Present: cachectic, A&O X 1, pleasant, no acute distress Exam: - Head Head exam: Present: atraumatic, normal inspection, normocephalic - Eye Eye exam: Present: EOMI, conjuntiva pink - ENT ENT exam: Present: mucous membranes dry Additional comments: mucous in oropharynx - Neck Neck exam general surgery: Present: normal inspection, supple - Respiratory Respiratory exam: Present: CTAB. Absent: accessory muscle use, respiratory distress, rhonchi, wheezes - Cardiovascular Cardiovascular exam: Present: RRR, +S1, +S2 - GI/Abdominal GI/Abdominal exam: Present: normal bowel sounds, soft. Absent: distended - Additional comments: no milton, no sacral ulcer, ecchymosis over coccyx - Extremities Exam Extremities exam: Present: full ROM, normal inspection, radial pulses palpable and symmetrical. Absent: pedal edema, tenderness - Back Exam Back exam: Present: tenderness (coccyx). Absent: paraspinal tenderness, vertebral tenderness - Neurological Exam Neurological exam: Present: altered. Absent: oriented X3, facial droop Additional comments: good skid worker strength - Psychiatric Additional comments: unable to access - Skin Skin exam: Present: dry, warm Additional comments: no sacral ulcer, ecchymosis over coccyx Internal Medicine: Result - Labs CBC & Chem 7: 01/15/17 04:48 01/15/17 04:48 Labs: Short CBC 01/15/17 Range/Units 04:48 WBC 8.9 (4.3-11.1) K/mcL Hgb 7.7 L (11.5-15.4) g/dL Hct 24.4 L (35.3-44.9) % Plt Count 214 (140-400) K/mcL Neutrophils # 7.2 (1.6-8.9) K/mcL BMP 01/15/17 04:48 Sodium 140 Potassium 3.8 Chloride 112 H Carbon Dioxide 20 BUN 27 H Creatinine 0.71 Glucose 114 H Calcium 7.7 L - ABG Interpretation ABG results: PT/INR, D-dimer PT 12.5 Seconds (9.4-12.1) H 01/13/17 17:32 - Pulse Oximetry Interpretation Digit-Finger Pulse Oximetry Readin (On 3 L O2 via NC) Consult Discharge Plan - Plan Additional Instructions: Continue Cefepime 1gram daily for 5 more days Continue Mucinex twice a day Discontinue milton at ECF if patient passes voiding trial Hold iron supplementation until PNA resolved Referrals: NONE,PCP [Primary Care Provider] - Prescriptions: Cefepime HCl/Dextrose, Iso-Osm [Cefepime 1 gm Injection] 1 gm IV DAILY 5 Days # 5 gm GuaiFENesin/Dextromethorphan [Robitussin/Dm] 5 ml PO BID #14 [facility]
--- NOTE | 2017-01-15 10:05 | Discharge Summary ---
<Lukas Gandara - Last Filed: 01/15/17 10:23> Date of Encounter: 01/15/17 Time of Encounter: 08:30 - Discharge Diagnosis (1) Sepsis Priority: Primary Status: Acute Comments: Patient met sepsis criteria with tachycardia, tachypnea, leukocytosis and evidence of multilobar pneumonia on CXR She remains afebrile Continue gentle hydration Discontinue Vanc/Zosyn/Levaquin (Day 3) Order power glide, start Cefepime IV for 5 more days Follow sputum culture Patient is DNR CCA Qualifiers: Sepsis type: sepsis due to unspecified organism Qualified Code(s): A41.9 - Sepsis, unspecified organism (2) HCAP (healthcare-associated pneumonia) Priority: Primary Status: Acute Comments: Multilobar pneumonia on CXR Speech therapy evaluation negative for aspiration, started on mechanical soft, nectar thick liquids diet Follow sputum culture Discontinue Vanc/Zosyn/Levaquin (Day 3) Order power glide, start Cefipime IV for 5 more days (3) Acute urinary retention Priority: Primary Status: Acute Comments: Acute urinary retention noted by bladder scan, patient has not had urine output since 5 pm yesterday and has still not voided Milton inserted (4) Elevated troponin Priority: Primary Status: Acute Comments: Possibly due to demand ischemia or and tachycardia Patient is a poor historian, denies chest pain EKG showed sinus tachycardia only Serial troponin decreasing 0.07 --> 0.05 --> 0.04 DNRCCA code status and advanced dementia (5) Hypertension Priority: Secondary Status: Chronic Comments: Resume home meds Qualifiers: Hypertension type: unspecified Qualified Code(s): I10 - Essential (primary ) hypertension (6) Anemia Priority: Secondary Status: Chronic Comments: Chronic, continue to monitor Baseline HGB around 10 HGB 8.3 --> 7.9 No hematuria, lactate is normal. FOBT pending Hold home Iron due to acute infection Continue to monitor Qualifiers: Anemia type: unspecified type Qualified Code(s): D64.9 - Anemia, unspecified (7) Dementia Priority: Secondary Status: Chronic Comments: She has advanced dementia and resides at [facility] Mental status seems to be at baseline Qualifiers: Dementia type: unspecified type Dementia behavioral disturbance: without behavioral disturbance Qualified Code(s): F03.90 - Unspecified dementia without behavioral disturbance (8) DVT prophylaxis Priority: Primary Status: Acute Comments: Lovenox - Discharge Medications Prescriptions: Cefepime HCl/Dextrose, Iso-Osm [Cefepime 1 gm Injection] 1 gm IV DAILY 5 Days # 5 gm GuaiFENesin/Dextromethorphan [Robitussin/Dm] 5 ml PO BID #14 udc Levofloxacin [Levaquin] 750 mg PO DAILY #5 tablet Home Medications: Acetaminophen [Tylenol 650mg SUPP] 650 mg RC Q4H PRN 01/13/17 [History] Acetaminophen [Tylenol] 650 mg PO Q4-6H PRN 01/13/17 [History] Ipratropium/Albuterol Neb [Duoneb] 3 ml IH Q4HR 01/13/17 [History] Loperamide HCl [Anti-Diarrheal] 2 mg PO Q12H PRN 01/13/17 [History] Mag Hydrox/Al Hydrox/Simeth [Antacid Suspension] 30 ml PO Q4H PRN 01/13/17 [ History] Magnesium Hydroxide [Milk of Magnesia] 2,400 mg PO Q4H PRN 01/13/17 [History] Metoprolol [Lopressor] 25 mg PO BID 01/13/17 [History] Phenol 1 ml MC Q4H PRN 01/13/17 [History] Quetiapine Fumarate [Seroquel] 25 mg PO Q6H PRN 01/13/17 [History] Quetiapine Fumarate [Seroquel] 100 mg PO HS 01/13/17 [History] amLODIPine [Norvasc] 5 mg PO HS 01/13/17 [History] traZODone [TraZODone] 25 mg PO HS 01/13/17 [History] Cefepime HCl/Dextrose, Iso-Osm [Cefepime 1 gm Injection] 1 gm IV DAILY 5 Days # 5 gm 01/15/17 [Rx] GuaiFENesin/Dextromethorphan [Robitussin/Dm] 5 ml PO BID #14 udc 01/15/17 [Rx] Levofloxacin [Levaquin] 750 mg PO DAILY #5 tablet 01/15/17 [Rx] Allergies/Adverse Reactions: 3 Allergy/AdvReac Type Severity Reaction Status Date / Time No Known Allergies Allergy Verified 11/19/15 19:34 Date of admission: 01/13/17 20:37 Primary care physician: PCP NONE Consults: 01/14/17 02:45 Consult to [employer] Em[employer] Supervisor [CONS] Routine Reason for SW Consult: patient is from [facility] 01/14/17 09:00 Consult to Speech Therapy [CONS] Routine Comment: Evaluate, develop and implement POC Reason for Consult: coughing after drinking liquid Call Completed: No 01/14/17 10:12 Consult to Nutrition [CONS] Routine Comment: Consulting Provider: NUTRITION Reason for Dietary Consult: PO Supplementation Discharging clinician: Lukas Gandara Anticipated date of discharge: 01/15/17 - Patient Status Disposition: Transfer SNF Condition: Fair Functional capacity at discharge: uses cane/walker Overall status at discharge: patient is progressing back to baseline - Discharge Instructions Follow Up With: NONE,PCP [Primary Care Provider] - Additional Instructions: Continue Cefepime 1gram daily for 5 more days Continue Mucinex twice a day Discontinue milton at ECF if patient passes voiding trial Hold iron supplementation until PNA resolved Schedule follow up appointment with PCP in 1 week crush all meds and patient takes them in applesauce. - Diet and Activity Activity: resume usual activities as tolerated Diet: other Hospital course: Ms. Boyce is a 86 year old female resident of SNF with dementia sent to ER with complains of tachycardia per SNF. At time of review at bedside, patient is A& Ox1 and her main complain is chills. Per EMR, she was referred from SNF due to persistent tachycardia, she has been receiving levaquin po for pneumonia treatment. She is laying flat at my time of review, and her tachycardia is improving with IVF hydration. Of note, patient had acute urinary retention noted by bladder scan. Milton inserted. EKG revealed sinus tachycardia. Work up is significant for multilobar pneumonia on CXR, hypokalemia, leukocytosis and anemia. Patient remained afebrile and discontinued Vanc/Zosyn/Levaquin on Day 3. Ordered power glide, start Cefipime IV for 5 more days. Follow up with PCP in 1 week. - Time Spent with Patient Total time spent providing and/or coordinating discharge services: - Constitutional Vitals: Temp Pulse Resp BP Pulse Ox 98.7 F 95 18 119/66 97 01/15/17 08:00 01/15/17 08:00 01/15/17 08:00 01/15/17 08:00 01/15/17 08:00 General appearance: Present: cachectic, A&O X 1, pleasant, no acute distress Exam: - Head Head exam: Present: atraumatic, normal inspection, normocephalic - Eye Eye exam: Present: EOMI, conjuntiva pink - ENT ENT exam: Present: mucous membranes dry Additional comments: mucous in oropharynx - Neck Neck exam general surgery: Present: normal inspection, supple - Respiratory Respiratory exam: Present: CTAB. Absent: accessory muscle use, respiratory distress, rhonchi, wheezes - Cardiovascular Cardiovascular exam: Present: RRR, +S1, +S2 - GI/Abdominal GI/Abdominal exam: Present: normal bowel sounds, soft. Absent: distended - Additional comments: milton, no sacral ulcer, ecchymosis over coccyx - Extremities Exam Extremities exam: Present: full ROM, normal inspection, radial pulses palpable and symmetrical. Absent: pedal edema, tenderness - Back Exam Back exam: Present: tenderness (coccyx). Absent: paraspinal tenderness, vertebral tenderness - Neurological Exam Neurological exam: Present: altered. Absent: oriented X3, facial droop Additional comments: good dispersion mixer strength - Psychiatric Additional comments: unable to access - Skin Skin exam: Present: dry, warm Additional comments: no sacral ulcer, ecchymosis over coccyx <Justin Trujillo - Last Filed: 01/15/17 14:53> Date of Encounter: 01/15/17 Date of admission: 01/13/17 20:37 Primary care physician: PCP NONE Consults: 01/14/17 02:45 Consult to Esters And Emulsifiers Supervisor [CONS] Routine Reason for SW Consult: patient is from [facility] 01/14/17 09:00 Consult to Speech Therapy [CONS] Routine Comment: Evaluate, develop and implement POC Reason for Consult: coughing after drinking liquid Call Completed: No 01/14/17 10:12 Consult to Nutrition [CONS] Routine Comment: Consulting Provider: NUTRITION Reason for Dietary Consult: PO Supplementation Hospital course: Ms. Boyce is a 86 year old female - Time Spent with Patient Total time spent providing and/or coordinating discharge services: - Constitutional Vitals: Temp Pulse Resp BP Pulse Ox 97.9 F 85 18 125/57 93 01/15/17 12:00 01/15/17 12:00 01/15/17 12:00 01/15/17 12:00 01/15/17 12:00 - Attending Attestation Acute metabolic encephalopathy likely secondary to sepsis due to healthcare associated pneumonia/gram-negative pneumonia present upon admission Continue Levaquin and start cefepime ( complete 5 more days of antibiotics) Time spent on discharge: 40 minutes I examined this patient and my medical decision-making was reviewed with the Resident Physician. I agree with the documented findings, disposition and treatment plan as described except to the extent set forth below. I examined this patient and my medical decision-making was reviewed with the Resident Physician. I agree with the documented findings, disposition and treatment plan as described except to the extent set forth below.
--- NOTE | 2017-01-15 10:18 | Physician Discharge Referral ---
ExtendedCare Referral Info Transfer To: [facility] Provider in Charge: Justin Crump Provider in Charge after Transfer: PCP Institutional Level of Care: Skilled - Diagnosis (1) Sepsis Priority: Primary Status: Acute (2) HCAP (healthcare-associated pneumonia) Priority: Primary Status: Acute (3) Acute urinary retention Priority: Primary Status: Acute (4) Elevated troponin Priority: Primary Status: Acute (5) Hypertension Priority: Secondary Status: Chronic (6) Anemia Priority: Secondary Status: Chronic (7) Dementia Priority: Secondary Status: Chronic (8) DVT prophylaxis Priority: Primary Status: Acute Prognosis: Fair Aware of Diagnosis: Patient Aware of Prognosis: Patient - Transfer Medications Prescriptions: Cefepime HCl/Dextrose, Iso-Osm [Cefepime 1 gm Injection] 1 gm IV DAILY 5 Days # 5 gm GuaiFENesin/Dextromethorphan [Robitussin/Dm] 5 ml PO BID #14 udc Home Medications: Acetaminophen [Tylenol 650mg SUPP] 650 mg RC Q4H PRN 01/13/17 [History] Acetaminophen [Tylenol] 650 mg PO Q4-6H PRN 01/13/17 [History] Ipratropium/Albuterol Neb [Duoneb] 3 ml IH Q4HR 01/13/17 [History] Loperamide HCl [Anti-Diarrheal] 2 mg PO Q12H PRN 01/13/17 [History] Mag Hydrox/Al Hydrox/Simeth [Antacid Suspension] 30 ml PO Q4H PRN 01/13/17 [ History] Magnesium Hydroxide [Milk of Magnesia] 2,400 mg PO Q4H PRN 01/13/17 [History] Metoprolol [Lopressor] 25 mg PO BID 01/13/17 [History] Phenol 1 ml MC Q4H PRN 01/13/17 [History] Quetiapine Fumarate [SEROquel] 25 mg PO Q6H PRN 01/13/17 [History] Quetiapine Fumarate [SEROquel] 100 mg PO HS 01/13/17 [History] amLODIPine [Norvasc] 5 mg PO HS 01/13/17 [History] traZODone [TraZODone] 25 mg PO HS 01/13/17 [History] Cefepime HCl/Dextrose, Iso-Osm [Cefepime 1 gm Injection] 1 gm IV DAILY 5 Days # 5 gm 01/15/17 [Rx] GuaiFENesin/Dextromethorphan [Robitussin/Dm] 5 ml PO BID #14 udc 01/15/17 [Rx] Allergies/Adverse Reactions: 3 Allergy/AdvReac Type Severity Reaction Status Date / Time No Known Allergies Allergy Verified 11/19/15 19:34 - Respiratory Orders Oxygen / L per min (3L) Smoking Cessation: Smoking cessation has been advised. For more information, call the [place] Tobacco Quit Line at 4-206-LKHL-NOW. - Ancillary Orders May use pressure relief devices daily prn - Mobility Orders Chair - Rehabiliation Orders Rehab Potential: Fair Rehab Orders: ROM Exercises, Evaluation for Physical Therapy, Evaluation for Occupational Therapy, Evaluation for Speech Therapy - Treatments Skin tear care topically daily PRN per policy, May check for fecal impaction rectally daily PRN, Fleet enema rectally every other day PRN cleansing purposes List/Other: Figueroa removal if patient passes voiding trial - Diet Orders Mechanical Soft, Pureed ([place] thick liquids) CERTIFICATION: I certify that the transfer of the above named patient to an Extended Care Facility is necessary for the continuing treatment of the diagnosis listed. The above information is true and accurate reflection of patient's current condition. Confidential - Redisclosure prohibited without a patient's written consent.
[2017-01-15 12:54] VITALS: BP 125/57
[2017-01-15] MEDS: Cefepime HCl 1,000 MG in Water for inj. (sterile) 10 ML IVP SCH ×2 (16:48→16:49)
== END 2017-01-15 17:25 | DRG 871 ==
LOC: EMEROO 17:12 → 2NENU 17:12
PROVIDERS: ADMIT Internal Medicine; ATTEND Internal Medicine